=== PATIENT | female | born 1990 | race Caucasian/White ===

== ENCOUNTER 2016-11-11 06:00 | Inpatient (IN) | payer BC ==
[~2016-11-11] VITALS: Ht 165.1 cm; Wt 94.9 kg
[~2016-11-11 06:00] MED LIST: ASPI-557 PO; PREN1TAB77 PO
--- OUTSIDE RECORDS SUMMARY | 2016-11-11 06:11 | XMS REPORT | Continuity of Care Document ---
Author Author [facility] Organization [facility] Address Unknown Phone Unavailable Support Name Relationship Address Phone TRACEE SAMANIEGO MD Caregiver [address] [place] [address] Unavailable ANA DORA Next Of Kin [address] [place] [address] Insurance Providers Guarantor Torin Rebolledo Address [address] [place] [address] Email DENIED/NO PORTAL Payer [facility] Policy Number [id number] Subscriber's Name Dora Rebolledo W Relationship 01 Spouse Group Number [id number] Chief Complaint and Reason for Visit Chief Complaint Lower Extremity Pain Reason for Visit Varicose veins during , antepartum Superficial thrombophlebitis Problems Active Problems Medical Problem Onset Date Status Unknown Acute Past Problems Medical Problem Onset Date Superficial thrombophlebitis Unknown Varicose veins during , antepartum Unknown Medications Current Home Medications Medication Dose Units Route Directions Days Qty Instructions Start Date Aspirin (Aspir 81) 81 Mg Tablet.dr 81 Mg Oral Daily 09/13/16 Past Home Medications Medication Directions Ordered Status Ferrous Sulfate (Iron) 325 Mg Capsule.er, 1 Tab Oral Give With Breakfast Discontinued Social History Social History Problem Response Recorded Date/Time Onset Date Status Hx Substance Use No 09/13/2016 7:51pm Not Applicable Not Applicable Has the pt used tobacco in the last 12 months No 01/20/2015 5:23pm Not Applicable Not Applicable Query Response Start Date Stop Date Smoking Status Never smoker Hospital Discharge Instructions No hospital discharge instructions. Plan of Care Discharge Date 09/13/16 8:21pm Disposition 01 DISCHARGED HOME, SELF-CARE Condition at Discharge Improved Instructions/Education Provided Superficial Thrombophlebitis (ED) Prescriptions See Medication Section Additional Instructions/Education Use warm packs several times daily Continue aspirin as directed May also use Tylenol up to 1000 mg 4 times daily as needed for pain Care Plan and Goals Physician Care Plan Problem: Varicose veins with superficial thrombophlebitis Goal: Follow up with primary care provider Instructions: Take medications and follow care plan as discussed/written Use warm packs several times daily Continue aspirin as directed May also use Tylenol up to 1000 mg 4 times daily as needed for pain Functional Status No functional status results. Allergies, Adverse Reactions, Alerts Allergen Type Severity Reaction Status Last Updated No Known Drug Allergies Allergy Mild Active 09/13/16 Immunizations Query Response on File Recorded Date/Time Hx Influenza Vaccination Y 04-13-14 01/21/15 3:14am Hx Pneumococcal Vaccination No 01/21/15 3:14am Hx Tetanus, Diptheria, Pertussis No 01/21/15 3:14am Hx Influenza Vaccination Y 04-13-14 01/21/15 3:14am Hx Tetanus Diptheria No 01/21/15 3:14am Hx Tetanus, Diptheria, Pertussis No 01/21/15 3:14am Hx Tetanus Toxoid Vaccination No 01/21/15 3:14am Tdap Vaccine Hx NO BROKEN SKIN 09/13/16 7:52pm Vital Signs Acute Vital Signs Vital Response Date/Time Temperature (Fahrenheit) 98.4 deg F (96.8 - 99.1) 09/13/2016 8:18pm Temperature (Calculated Celsius) 36.90227 degrees C (36.0 - 37.3) 09/13/2016 8:18pm Pulse Rate (adult) 77 bpm (60 - 100) 09/13/2016 8:18pm Respiratory Rate 16 breaths/min (10 - 20) 09/13/2016 8:18pm O2 Sat by Pulse Oximetry 98 % (90 - 100) 09/13/2016 8:18pm Blood Pressure 124/66 mm Hg 09/13/2016 8:18pm Height (Feet) 5 feet 09/13/2016 7:07pm Height (Inches) 5.00 inches 09/13/2016 7:07pm Weight (Kilograms) 92.300 kg 09/13/2016 7:07pm Body Mass Index (BMI) 33.0 09/13/2016 7:07pm Results Laboratory Results Test Name Result Units Flags Reference Collection Date/Time Result Date/ Time Comments White Blood Count 7.6 T/MM3 4.5-11.0 09/13/2016 7:32pm 09/13/2016 7: 41pm Red Blood Count 3.61 M/MM3 L 4.00-5.20 09/13/2016 7:32pm 09/13/2016 7: 41pm Hemoglobin 11.4 GM/DL L 12-16 09/13/2016 7:32pm 09/13/2016 7:41pm Hematocrit 34.7 % L 36-46 09/13/2016 7:32pm 09/13/2016 7:41pm Mean Corpuscular Volume 96.1 UM3 80-100 09/13/2016 7:32pm 09/13/2016 7: 41pm Mean Corpuscular Hemoglobin 31.6 UUG 26-34 09/13/2016 7:32pm 2016 7:41pm Mean Corpuscular Hemoglobin Concent 32.9 GM/DL 31-37 09/13/2016 7:32p09/13/2016 7:41pm RDW Standard Deviation 43.4 FL 36.9-50.2 09/13/2016 7:32p09/13/2016 7 :41pm Platelet Count 240 T/MM3 130-400 09/13/2016 7:32p09/13/2016 7:41pm Mean Platelet Volume 9.7 UM3 9.4-12.4 09/13/2016 7:32p09/13/2016 7: 41pm Neutrophils (%) (Auto) 63.4 % 33-66 09/13/2016 7:32p09/13/2016 7: 41pm Lymphocytes (%) (Auto) 29.2 % 23-45 09/13/2016 7:32p09/13/2016 7: 41pm Monocytes (%) (Auto) 6.2 % 0-9.0 09/13/2016 7:32p09/13/2016 7:41pm Eosinophils (%) (Auto) 0.8 % 0-4 09/13/2016 7:32pm 09/13/2016 7:41pm Basophils (%) (Auto) 0.1 % 0-2 09/13/2016 7:32pm 09/13/2016 7:41pm Immature Granulocyte % (Auto) 0.3 % 0.0-0.5 09/13/2016 7:32pm 2016 7:41pm Absolute Neutrophils (auto) 4.8 T/MM3 1.8-7.7 09/13/2016 7:32pm 2016 7:41pm Absolute Lymphocytes (auto) 2.2 T/MM3 1-4.8 09/13/2016 7:32pm 2016 7:41pm Absolute Monocytes (auto) 0.5 T/MM3 0-0.8 09/13/2016 7:32pm 09/13/2016 7:41pm Absolute Eosinophils (auto) 0.1 T/MM3 0-0.5 09/13/2016 7:32pm 2016 7:41pm Absolute Basophils (auto) 0.0 T/MM3 0-0.2 09/13/2016 7:32pm 09/13/2016 7:41pm Absolute Immature Granulocyte (auto 0.02 T/MM3 0.00-0.03 09/13/2016 7: 32pm 09/13/2016 7:41pm Prothromb Time International Ratio 0.96 0.76-1.04 09/13/2016 7:32pm 09/13/2016 7:43pm THERAPUTIC RANGE=2.00-3.00 FOR ANTI-THROMBOSIS THERAPUTIC RANGE=2.50-3.50 FOR IMPLANTED VALVE Activated Partial Thromboplast Time 25.4 SEC 24-36 09/13/2016 7:32pm 7:43pm Procedures No known history of procedures. Encounters Encounter Location Arrival/Admit Date Discharge/Depart Date Attending Provider Departed Emergency Room [facility] 09/13/16 6:51pm 09/13/16 8: 21pm TRACEE SAMANIEGO MD Recent Diagnosis
[2016-11-11] MEDS ORDERED: OXYTOCIN 30 UNIT in D5LR 500 ML SCH (06:15)
[2016-11-11] MEDS ORDERED: ACETAMINOPHEN 500 MG TABLET PO PRN ×2 (06:15→13:45)
[2016-11-11] MEDS ORDERED: MAG-AL + SIM LIQUID 30 ML UDC PO PRN ×2 (06:15→13:45)
[2016-11-11] MEDS ORDERED: LIDOCAINE 1% (10mg/ml) 2ml SDV ID PRN (06:15)
[2016-11-11] MEDS ORDERED: CALCIUM CARBONATE 500mg Chewable TAB PO PRN ×2 (06:15→13:45)
[2016-11-11 06:34] VITALS: BP 123/84; PULSE 85; RESP 16; TEMP 99.4; O2SAT 95
[2016-11-11] MEDS: LR 1,000 ML IV PRN ×2 (06:43→08:43)
[2016-11-11 06:45] LABS: HCT - HEMATOCRIT 36.1 % (36-46); HGB - HEMOGLOBIN 11.6 GM/DL (12-16); MEAN CORPUSCULAR HGB 30.9 UUG (26-34); MEAN CORPUSCULAR HGB CONC(MCHC 32.1 GM/DL (31-37); MEAN PLATELET VOLUME 10.7 UM3 (9.4-12.4); RED BLOOD COUNT 3.76 M/MM3 (4.00-5.20)
[2016-11-11] MEDS ORDERED: D5LR 1,000 ML IV PRN (06:45)
--- NOTE | 2016-11-11 08:41 | ANESOB ---
Epidural/ Date/Time DATE: 11/11/16 TIME: 08:40 Preop Diagnosis Procedure: Labor Epidural Plan: Epidural Height: 5 ' 5.00 " Weight: 94.900 kg BMI: kg/m2 P:1 Medications & Allergies Inpatient Medications Current Medications Medications (Trade) Dose Ordered Sig/Jayla Start Time Stop Time Status Last Admin Dose Admin Dextrose/Lactated Ringer's 1,000 ml @ 0 mls/hr Q0M PRN 11/11/16 06:45 11/11/16 06:43 0 MLS/HR Oxytocin/Dextrose/ Lactated Ringer's (Pitocin/D5lr) 503 ml @ 0 mls/hr Q0M 11/11/16 06:15 11/11/16 06:44 0 MLS/HR Lidocaine HCl 0.2 mg 0.2 mg PRN PRN 11/11/16 06:15 Lactated Ringer's (Lactated Ringers) 1,000 ml @ 0 mls/hr Q0M PRN 11/11/16 06:08 11/11/16 06:43 0 MLS/HR Acetaminophen (Tylenol Extra Strength) 1-2 TABS = 500-1,000 MG Q4H PRN 11/11/16 06:15 Al Hydroxide/Mg Hydroxide (Maalox) 30 ml Q4H PRN 11/11/16 06:15 Calcium Carbonate (TUMS Regular Strength) 1-2 TABS Q2H PRN 11/11/16 06:15 Aspirin (Aspir 81) 81 Mg Tablet.dr, 81 MG PO DAILY, (Reported) Last Taken: on 11/10/16 0800 Vits W-Ca,Fe,FA(<1Mg) ( Vitamins) 1 Each Tablet, 1 TAB PO DAILY, (Reported) Last Taken: on 11/10/16 0800 Coded Allergies: No Known Drug Allergies (Unverified Allergy, Mild, 09/13/16) Medical/Surgical History Anesthesia PMH: Reports: Other (On ASA 81 mg for blood clot), Denies: *Diabetes , Anesthesia Reactions, Malignant Hyperthermia Smoking Status: Never smoker Does patient use chewing tobac: No Second Hand Exposure: No Substance Use Type: does not use Alcohol Intake: none Anesthesia Adverse Reactions: FOUND none Family Hx of Anesthesia Advers: none Hx of Motion Sickness: No Complications During : No Pertinent Findings Laboratory Tests 11/11/16 06:31 Physical Exam Respiratory: Bilat breath sounds equal, Lungs clear Cardiovascular: No murmur, Regular rate, rhythm Airway Assessment Mallampati Score: I TMD: 3 Fingerbreadths Neck Extension: Good Overall Assessment: No Airway Concerns ASA: 2 Discussion Discussed risks/options/alternatives of anesthesia. Patient consents. Nursing pain assessment noted. Present for Discussion: Present: Spouse Attestation Statement Prior to the delivery of any anesthetic medication, I examined the patient, developed the plan, obtained the patient's consent and discussed the risk and benefits of the procedure with the patient/guardian. If the note happens to be signed after anesthesia start time, it is only due to providing efficient care of the patient and documenting at a time when the computer is available. ALBERTO WEI CRNA Nov 11, 2016 08:41
[2016-11-11] MEDS ORDERED: ROPIVACAINE 1% 200 MG, SUFENTANIL 50 MCG in NORMAL SALINE 80 ML EPI PRN (08:45)
[2016-11-11] MEDS ORDERED: DiphenhydrAMINE 50 MG/ML INJECTION IV PRN (08:45)
[2016-11-11] MEDS ORDERED: ONDANSETRON 4mg/2ml INJECTION IV PRN (08:45)
[2016-11-11] MEDS ORDERED: NALOXONE 0.4mg/ml INJECTION IV PRN (08:45)
[2016-11-11] MEDS ORDERED: OXYTOCIN 30 UNIT in D5LR 500 ML IV ONE (13:44)
[2016-11-11] MEDS ORDERED: OXYTOCIN 30 UNIT in D5W 500 ML IV ONE (13:44)
[2016-11-11] MEDS ORDERED: PHENYLEPHRINE RECTAL SUPPOSITORY RECTALLY PRN (13:45)
[2016-11-11] MEDS ORDERED: DiphenhydrAMINE 25 MG CAPSULE PO PRN (13:45)
[2016-11-11] MEDS ORDERED: HYDROCORTISONE 2.5% CREAM 30 GM RECTALLY PRN (13:45)
[2016-11-11] MEDS ORDERED: IBUPROFEN 800 MG TABLET PO PRN (13:45)
[2016-11-11] MEDS ORDERED: MILK OF MAGNESIA 30 ML SUSP PO PRN (13:45)
[2016-11-11] MEDS ORDERED: HYDROCODONE/APAP 5 mg/325 mg TABLET PO PRN (13:45)
--- NOTE | 2016-11-11 15:05 | NUR ---
Care Assumed Report from Cintia Wynn RN and Tamiko Baca RN. Care assumed. Pt in recovery. See further charting in [facility].
--- NOTE | 2016-11-11 16:20 | ANESPO ---
Post-Op Note Date 11/11/16 Time: 16:19 Status Pt Participated in Evaluation: Pt participated in person Vital Signs Date Time Temp Pulse Resp B/P Pulse Ox O2 Delivery O2 Flow Rate FiO2 11/11/16 06:34 99.4 85 16 123/84 95 Room Air Respiratory Function: Airway patent, Regular respirations Cardiovascular Function: Regular pulse Mental Status: Alert/oriented Pain Level Intensity: 0 Hydration: Taking po fluids Complications during Recovery None apparent Follow-Up Instructions Instructions Per Surgeon JOHN PHOENIX CRNA Nov 11, 2016 16:20
[2016-11-11 16:50] VITALS: BP 129/79; PULSE 85; RESP 18; TEMP 98
--- NOTE | 2016-11-11 17:45 | NUR ---
Void Pt up to BR on own. Able to void 600 ml. States she feels that she was able to completely empty her bladder. Minimal bleeding. Pt denies pain at this time.
[2016-11-11 17:50] VITALS: BP 122/68; PULSE 85; RESP 18; O2SAT 97
--- NOTE | 2016-11-11 18:11 | LDNF ---
DATE OF DELIVERY: 11/11/2016 DIAGNOSES 1. 26-year-old white female, G2, P1 at 39 weeks 1 day gestational age. 2. Pitocin induction of labor for logistics. 3. Epidural anesthesia. 4. AROM. 5. Spontaneous vaginal delivery. 6. Nuchal cord x 1. 7. Male infant, Apgars 3637 g (8 pounds) (Isrrael Montano). 8. Second-degree perineal laceration - repaired. This is a patient of mine who was brought in for logistics induction. She has a history of a previous PPROM at 36.4 weeks gestational age. She is 39.1 weeks today. She was 2.5 cm dilated when we started. Pitocin reached a maximum of 18 milliunits/minute. Pitocin was turned on and off throughout the day because of heart tone issues. Artificial rupture of membranes occurred after the epidural in the morning and she was 4 cm dilated. Eventually we made it to complete dilation in OA presentation. Infant was delivered from the OA presentation on the third contraction and the ninth push. was bulb suctioned after delivery of the head and then again after delivery of the body. There was a nuchal cord x 1 that was delivered through. Infant was bulb suctioned after delivery of head and then again after delivery of the body. After draining for 1 minute 45 seconds the cord was doubly clamped and cut and the infant was placed on the mother's abdomen. The placenta delivered spontaneously and was intact. EBL was 250. There was a second-degree perineal laceration. I reinforced the rectal sphincter capsule with 2-0 Vicryl in a [id number] fashion and then using 2-0 Vicryl and 3-0 chromic repaired the second-degree laceration. Maternal blood type is A+, rubella is immune. MTDD
--- NOTE | 2016-11-11 21:00 | NUR ---
Status Pt rating pain 4-5/10 in lower back. Ibuprofen given. Bleeding small to scant. Tolerating po food and fluids. IV dc'd per pt request. Linens brought in for shower. Pt is unsure if she will shower tonight or in the morning. Denies further needs at this time. Encouraged to call PRN.
[2016-11-12 00:05] VITALS: BP 120/76; PULSE 62; RESP 16; TEMP 97.8; O2SAT 98
--- NOTE | 2016-11-12 01:51 | NUR ---
Chart Check 24 hour chart check completed
[2016-11-12 06:07] LABS: HCT - HEMATOCRIT 34.3 % (36-46); HGB - HEMOGLOBIN 11.1 GM/DL (12-16); MEAN CORPUSCULAR HGB CONC(MCHC 32.4 GM/DL (31-37); MEAN CORPUSCULAR VOLUME 95.8 UM3 (80-100); MEAN PLATELET VOLUME 10.3 UM3 (9.4-12.4); RED BLOOD COUNT 3.58 M/MM3 (4.00-5.20); WBC - WHITE BLOOD COUNT 8.2 T/MM3 (4.5-11.0)
[2016-11-12 07:50] VITALS: BP 127/78; PULSE 59; RESP 16; TEMP 97.8; O2SAT 97
--- NOTE | 2016-11-12 08:21 | PNPDOC ---
Progress Note PPD1 Weeks: 39 Days: 1 Rubella: Immune GBS: Negative Blood Type:A pos Subjective 11/12/16 Lochia: Moderate Pain: Controlled Pain controlled with Ibuprofen Voiding: Voiding Nausea and Vomiting: No Nausea/Vomiting Objective Vital Signs Date Time Temp Pulse Resp B/P Pulse Ox O2 Delivery O2 Flow Rate FiO2 11/12/16 00:05 97.8 62 16 120/76 98 Room Air Urine Output: Good General: Alert and Oriented Respiratory: Non-labored Abdomen: Fundus Firm Extremities: Non-tender Edema: None Laboratory Item Value Date Time White Blood Count 8.2 T/MM3 11/12/16556 Red Blood Count 3.58 M/MM3 L 11/12/16556 Hemoglobin 11.1 GM/DL L 11/12/16556 Hematocrit 34.3 % L 11/12/16556 Platelet Count 189 T/MM3 11/12/16556 Assessment SP, JOOVN Plan Routine Care, Discharge Home, Continue PNV Expected date of discharge: Nov 12, 2016 Plans to go home today after bilirubin back on baby. CITLALI BOO APRN Nov 12, 2016 08:18
[2016-11-12] MEDS ORDERED: IBUP-1547 PO (08:31)
[2016-11-12] MEDS ORDERED: PRENATAL VITAMIN TABLET PO SCH (09:00)
[2016-11-12] MEDS ORDERED: ASPIRIN *EC* 81mg TABLET PO SCH (09:00)
[2016-11-12] MEDS ORDERED: DOCUSATE CALCIUM 240 MG CAPSULE PO SCH (09:00)
--- NOTE | 2016-11-12 15:29 | NUR ---
Shift Summary: VSS, pain controlled, pt up ad matthew. Bleeding is minimal. Pt is performing self cares. is going well. Pt and family is awaiting DC to home.
[2016-11-12 15:30] VITALS: BP 140/76; PULSE 70; RESP 16; TEMP 96.7; O2SAT 96
== END 2016-11-12 16:36 | disposition home or self-care (01) | DRG 775 ==
LOC: MC 06:01
PROVIDERS: ADMIT Obstetrics & Gynecology; ATTEND Obstetrics & Gynecology
PROC: 10E0XZZ Delivery of Products of Conception, External Approach (ICD-10-PCS; principal; 2016-11-11)
PROC: 0KQM0ZZ Repair Perineum Muscle, Open Approach (ICD-10-PCS; 2016-11-11)
PROC: 3E033VJ Introduction of Other Hormone into Peripheral Vein, Percutaneous Approach (ICD-10-PCS; 2016-11-11)
PROC: 10907ZC Drainage of Amniotic Fluid, Therapeutic from Products of Conception, Via Natural or Artificial Opening (ICD-10-PCS; 2016-11-11)
DX: O26.893 Other specified pregnancy related conditions, third trimester (principal); O69.81X0 Labor and delivery complicated by cord around neck, without compression, not applicable or unspecified; O70.1 Second degree perineal laceration during delivery; O09.213 Supervision of pregnancy with history of pre-term labor, third trimester; Z3A.39 39 weeks gestation of pregnancy; Z37.0 Single live birth
CPT/HCPCS: 36415; 85027

== ENCOUNTER 2018-01-11 06:04 | Inpatient (IN) ==
--- OUTSIDE RECORDS SUMMARY | 2018-01-11 06:11 | External Medical Summary | Continuity of Care Document ---
:1990 Author Organization [facility] Address [address] [place], [place] [address] Phone Support Name Relationship Address Phone Padilla Rebolledo spouse [address] [place] [address] Allergies, Adverse Reactions, Alerts Substance Reaction Severity Status No Known Drug Allergies Unknown Active Medications Medication Instructions Dosage Effective Dates Status Comments (start - stop) 27 mg-0.8 take 1 tablet by Not Available - Active mg tablet oral route every day Problems Condition Effective Dates (start - stop) Clinical Status Threatened - Dysuria - Suprvsn of preg w history of pre-term - labor, second tri Placenta previa specified as w/o - hemor, second trimester 20 weeks gestation of - Suprvsn of preg w history of pre-term - labor, second tri Placenta previa specified as w/o - hemor, second trimester 18 weeks gestation of - Threatened - Threatened Threatened Dysuria Placenta Previa without Hemorrhage Encntr screen for infections w sexl - mode of transmiss Encounter for screening for oth - infec/parastc diseases Routine Care, Multigravida Encounter for screening of - mother 10 weeks gestation of - Encounter for suprvsn of normal - , second trimester 14 weeks gestation of - Encounter for suprvsn of normal - , second trimester 20 weeks gestation of - Active Procedures Procedure Date Ultrasound exam of preg uterus, complete Results Test Name Date and Time Measure Units Reference Range Abnormal Flag Comments Unknown Advance Directives Directive Yes / No Effective Date File Name Unknown Encounters Encounter Practice Location Reason(s) Diagnoses Date Provider Care Team Description For Visit Members Jose Medina Encounter for Dec-0 [facility] Referring In Womens suprvsn of normal 8-201 [address]. 700 Provider: Geno BOYD, , second 6 Medical Ravinder [address] [id number] weeks Center [facility] [place], 1522, gestation of Dr Rey Conchita Kwan, 120, Medical [facility] [id number], [place], [place] 120, [place] [id number] Adam, tel: , [place]. [place], tel: [phone]. [id number] tel:[phone] Jose Medina Suprvsn of preg w Dec-0 [facility]ima Referring In Womens Ultrasound history of 8-201 [address]. 700 Provider: Geno BOYD, pre-term labor, 6 Medical Ravinder PO Box second Center [facility] [place], 1522, [place], [address] [place], previa specified 120, Medical KELSIE, as w/o [facility] [id number], second [place], [place] 120, [place] [email or web address] weeks [id number] Adam, tel: gestation of , [place]. [place] tel:[phone]. [id number] tel:[phone] Jose Medina Suprvsn of preg w Nov-2 Hima Referring In Womens history of 3-201 [address]. 700 Provider: Geno BOYD, pre-term labor, 6 Medical Ravinder PO Box second Center [facility]ima R, 1522, [place], [address] [place], previa specified 120, Medical KELSIE, as w/o [place], [place] [id number], second KELSIE, [place] 120, [place] [email or web address] weeks [id number] Adam, tel: gestation of , [place]. [place] tel: [phone]. [id number] tel:[phone] Jose Medina Encounter for Oct-2 Hima Referring In Womens suprvsn of normal 5-201 [address]. 700 Provider: Geno BOYD, , second 6 Medical Ravinder [address] [email or web address] weeks Center Hima R, 1522, gestation of Dr, [place] [address] [place], 120, Medical [facility] [id number], [place], [facility] 120, [place] [id number] Adam, tel: , [place]. [place], tel:[phone]. [id number] tel:[phone] Jose Medina Placenta Previa Sep-2 Hima Referring In Womens without 7-201 [address]. 700 Provider: Silverio Cruzntafia [address] [place] [address] PO Box screen for Center [facility] R, 1522, infections w sexl , [place] [address] [place], mode of 120, Medical [place], [facility]ounte [facility] [id number], [place] for screening [place], [facility] 120, [place] for oth [id number] Adam, tel: infec/parastc , [place]. [place], diseasesRoutine tel:[phone]. Care, [id number] tel: MultigravidaEncou [phone] nter for screening of [id number] weeks gestation of Associates Adam Threatened Sep-2 Hima Referring In Womens Ultrasound 2-201 [place]. 700 Provider: Geno BOYD 6 [facility] PO Box Center [facility] [place], 1522, , [address], 120, [facility] [id number], [place], [facility] 120, [place] [id number] Adam, tel: , [place]. [place], tel: [phone]. [id number] tel:[phone] Jose Medina Threatened Sep-2 Flowers Referring In Womens abortionThreatene 2-201 Lucinda. Provider: steve Cruz [address] [place] [address] PO Box abortionThreatene Medical Hima R, 1522, [address] [place] [address] [place] abortionDarrionsu[place], [facility], [place] 120, [place] [id number], [facility], [place] Adam IGLESIAS, tel:[phone] [place], , [place]. [id number]. tel: tel: [phone] Jose Medina Joselito-2 Hima Referring In Womens 5-201 [place]. 700 Provider: Health PA, 5 [facility] Earl Brennan, , [address] 700 [place], 120, Medical [facility] [id number], [place], [facility] 120, [id number] Adam, tel: , . [place], tel: [phone]. [id number] tel:[phone] Associates Adam Dec-2 Hima Referring In Womens 3-201 [place]. 700 Provider: Health PA, 4 [facility] Earl Brennan, , [place] 700 [place], 120, Medical [facility] [id number], [place], [facility] 120, [id number] [place], tel: , . [place], tel: [phone]. [id number] tel:[phone] Associates [facility] Jun-1 Luan In Womens 6-201 Nelia. Health PA, [address] [place] [address] [address], [place] [address] [place], [facility], [facility], [id number], [place], KELSIE, tel: [phone] , [place]. tel: [phone] Family History Family Member Diagnosis Age At Onset No family history of Lung Disease Paternal Grandmother Stroke Maternal Grandfather Thyroid Disorder No family history of Hypertension No family history of Kidney Disease Mother Diabetes mellitus No family history of Cardiovascular Disease No family history of Venous Thrombosis Mother Thyroid Disorder No family history of Breast Cancer No family history of Ovarian Cancer Maternal Grandmother Thyroid Disorder No family history of Colon Cancer Maternal Grandfather Diabetes mellitus No family history of Osteoporosis Father Diabetes mellitus No family history of Uterine Cancer No family history of Epilepsy Immunizations Vaccine Date Status Comments Influenza, injectable, completed Source: New Immunization Record quadrivalent, preservative free, 3 yrs or older Tdap completed Source: New Immunization Record Influenza, injectable, completed Source: Source Unspecified quadrivalent, preservative free, 3 yrs or older Payers Payer name Insurance type Covered alliance party ID Authorization(s) [facility] KELSIE [id number] [facility] KELSIE [id number] [facility] [id number] Social History Type Description Quantity Date Captured Unknown Vital Signs Date / Height Weight BMI Pulse Blood Temperature Respiratory Body Head BMI Time: Rate Pressure Rate Surface Circumference percentile Area Unknown Chief Complaint And Reason For Visit Unknown Chief Complaint And Reason For Visit Reason For Referral Reason For Referral Unknown Plan Of Care Date Type Action Status Appointment KeshaGin BOOKED Future Order: Radiology Order Complete OB Ultrasound > 14 Ordered Weeks (11128) Future Order: Lab Order Pap Smear With HPV Reflex If ASCUS Ordered ([id number]) Future Order: Lab Order Pap Smear With HPV Reflex If ASCUS Ordered ([id number]) Date Type Problem Goal Intervention Status Start Date Unknown. History Of Present Illness Encounter Date Complaint History Of Present Illness This patient has no known history of present illness Functional Status Encounter Date Functional Assessment Cognitive Assessment Unknown Medications Administered Medication Instructions Dosage Effective Dates (start - stop) Status Comments Drug Treatment Unknown Instructions Date Instruction Additional Information HIV and other routine tests risk factors identified by history anticipated course of care nutrition and weight gain counseling, special diet toxoplasmosis precautions (cats / raw meat) sexual activity exercise indications for ultrasound influenza vaccine environmental / work hazards travel use of any medications (including supplements, vitamins, herbs, OTC drugs) seat belt use childbirth classes / hospital facilities hospital registration genetic testing new ob handbook HIV and other routine tests risk factors identified by history anticipated course of care nutrition and weight gain counseling, special diet toxoplasmosis precautions (cats / raw meat) sexual activity exercise new ob handbook [facility] docs indications for ultrasound influenza vaccine environmental / work hazards travel use of any medications (including supplements, vitamins, herbs, OTC drugs) domestic violence seat belt use childbirth classes / hospital facilities hospital registration genetic testing
--- OUTSIDE RECORDS SUMMARY | 2018-01-11 06:11 | External Medical Summary | Continuity of Care Document ---
:1990 Author Organization [facility] Address [address] [place], [place] [id number] Phone Care Team Providers Name Role Phone Rinku Ramos MD Unavailable Unavailable Allergies, Adverse Reactions, Alerts Substance Reaction Severity Status No Known Drug Allergies Unknown Active Medications Medication Instructions Dosage Effective Dates Status Comments (start - stop) 27 mg-0.8 take 1 tablet by Not Available - Active mg tablet oral route every day Problems Condition Effective Dates (start - stop) Clinical Status Follow-Up, Routine - Dysuria - Suprvsn of preg w history of pre-term - labor, first trimester Supervision of other high risk - pregnancies, first trimester Encntr screen for infections w sexl - mode of transmiss Encounter for screening for oth - infec/parastc diseases Encounter for screening of - mother 10 weeks gestation of - 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 Placenta Previa without Hemorrhage Encounter for screening for oth - infec/parastc diseases Dysuria Active Active Procedures Procedure Date Initial OB Visit No Charge - ORDER ENTRY TECHNICIAN Urine Culture OB Panel With An HIV Venpnctr fngr/heel/ear stick routne Infct antign, chlamydia trac, ampl Neisseria Gonorrhoeae, Amplification Cult, bactr, ident isolate, urine Results Test Name Date and Time Measure Units Reference Range Abnormal Flag Comments Panel Description: OBSTETRIC PANEL WHITE BLOOD CELL 9.1 Thousand/uL 3.8-10.8 N COUNT 15:17:00 RED BLOOD CELL 4.04 Million/uL 3.80-5.10 N COUNT 15:17:00 HEMOGLOBIN 12.8 g/dL 11.7-15.5 N 15:17:00 HEMATOCRIT 38.1 % 35.0-45.0 N 15:17:00 MCV 94.3 fL 80.0-100.0 N 15:17:00 MCH 31.7 pg 27.0-33.0 N 15:17:00 MCHC 33.6 g/dL 32.0-36.0 N 15:17:00 RDW 12.2 % 11.0-15.0 N 15:17:00 PLATELET COUNT 278 Thousand/uL 140-400 N 15:17:00 MPV 9.9 fL 7.5-12.5 N 15:17:00 ABSOLUTE 6497 cells/uL 7241-9489 N NEUTROPHILS 15:17:00 ABSOLUTE 2102 cells/uL 850-3900 N LYMPHOCYTES 15:17:00 ABSOLUTE 446 cells/uL 200-950 N MONOCYTES 15:17:00 ABSOLUTE 36 cells/uL 15-500 N EOSINOPHILS 15:17:00 ABSOLUTE 18 cells/uL 0-200 N BASOPHILS 15:17:00 NEUTROPHILS 71.4 % N 15:17:00 LYMPHOCYTES 23.1 % N 15:17:00 MONOCYTES 4.9 % N 15:17:00 EOSINOPHILS 0.4 % N 15:17:00 BASOPHILS 0.2 % N 15:17:00 ANTIBODY SCREEN, NO ANTIBODIES N RBC W/REFL ID, 15:17:00 DETECTED Reference range TITER AND AG No antibodies detected This assay is a screening test for the detection of red blood cell antibodies. The test is not to be used for pretransfusion screening or for the medical management of an alloimmunized . ABO GROUP A 15:17:00 RH TYPE RH(D) 15:17:00 POSITIVE RPR (DX) W/REFL NON-REACTIVE NON-REACTIV N TITER AND 15:17:00 E CONFIRMATORY TESTING HEPATITIS B NON-REACTIVE NON-REACTIV N SURFACE ANTIGEN 15:17:00 E RUBELLA ANTIBODY 2.16 index N Index (IGG) 15:17:00 Interpretation ----- <0.90 Not consistent with Immunity 0.90-0.99 Equivocal > or=1.00 Consistent with Immunity The presence of rubella IgG antibody suggests immunization or past or current infection withrubella virus.Test performed at [facility] [id number] [facility] [place] [address]Tepeknw r: VALENTIN ANNA DO,MPH Panel Description: HIV 1/2 ANTIGEN/ANTIBODY,FOURTH GENERATION W/RFL HIV NON-REACTIVE NON-REACTIVE N HIV-1 antigen and HIV-1/HIV- 2 antibodies were AG/AB, 15:17:00 notdetected. There is no laboratory evidence of 4TH GEN HIVinfection. PLEASE NOTE: This information has been disclosed toyou from records whose confidentiality may beprotected by state law. If your state requires suchprotection, then the state law prohibits you frommaking any further disclosure of the informationwithout the specific written consent of the personto whom it pertains, or as otherwise permitted by law.A general authorization for the release of medical orother information is NOT sufficient for this purpose. For additional information please refer tohttp://education.CoinBatch/faq/PTZ308(This link is being provided for informational/educational purposes only.) The performance of this assay has not been clinicallyvalidated in patients less than 2 years old. REPORT COMMENT:FASTING:NOTest performed at [facility] [id number] [facility] [place] [address]Oiwsrynp: VALENTIN ANNA DO,MPH Panel Description: Bacteria identified in Urine by Culture CULTURE, URINE, 15:20:00 SEE NOTE CULTURE, URINE, ROUTINE ROUTINE MICRO NUMBER: [id number] TEST STATUS: FINAL SPECIMEN SOURCE: URINE SPECIMEN QUALITY: ADEQUATE RESULT: Single organism less than 10,000 CFU/mL isolated. These organisms, commonly found on external and internal genitalia, are considered colonizers. No further testing performed.REPORT COMMENT:RFASTING:UNKNOWNTest performed at [facility] [address] [address]Hoipqxlq: VALENTIN ANNA DO,MPH Panel Description: CHLAMYDIA/N. GONORRHOEAE RNA, TMA CHLAMYDIA NOT DETECTED NOT DETECTED N TRACHOMATIS RNA, 15:18:00 TMA NEISSERIA NOT DETECTED NOT DETECTED N GONORRHOEAE RNA, 15:18:00 TMA [id number] SEE NOTE This test was 15:18:00 performed using the APTCrossCore COMBO2 Assay([employer] The analytical performance characteristics of this assay, when used to test SurePath specimens havebeen determined by [facility]. REPORT COMMENT:FASTING:UNKNO WNTest performed at [facility] [address] [address]Vutvizdw: VALENTIN ANNA DO,MPH Panel Description: Pap Smear With HPV Reflex If ASCUS Document Pap smear 14:30:00 See scanned report Advance Directives Directive Yes / No Effective Date File Name Unknown Encounters Encounter Practice Location Reason(s) Diagnoses Date Provider Care Team Description For Visit Members [facility] Pagan of preg w Hima Referring In Womens history of pre-term 8-201 [place]. 700 Provider: Health PA, labor, rust 7 [facility] trimesterSupervisio Center Hima R, 1522, n of other high , [place] 700 [place], risk pregnancies, 120, Medical [facility] [id number], trimesterEncntr [place], [facility] 120, [place] screen for [id number] Adam, tel:[phone] infections w sexl , [place]. [place], [id number] mode of tel: [phone]. transmissEncounter [id number] tel:[phone] for screening for [id number] oth infec/parastc diseasesEncsparrow [facility] for screening of updyut12 weeks gestation of Associates [facility] May-3 [place]ima Referring In Womens Follow-Up, Routine 1-201 [place]. 700 Provider: Geno BOYD, 7 [facility] [address] [place] Hima [place] 1522, , [place] [address]wan, 120, Medical Adam IGLESIAS, [place] [id number], [place], [place] 120, [place] [id number] Adam, tel:+ , [place]. [place], tel: [phone]. [id number] tel:[phone] Jose [place] Mar-3 Hima Referring In Womens 0-201 [place]. 700 Provider: Geno BOYD, 7 [facility] Hima [place]ier 1522, Dr [place] [address]wan, 120, Medical Adam IGLESIAS, [place] [id number], [place], [place] 120, [place] [id number] Adam, tel:+ , [place]. [place] tel: [phone]. [id number] tel:[phone] Associates [facility] Embolism and Mar-0 Hima Referring In Womens thrombosis of 2-201 [place]. 700 Provider: Geno BOYD, superfic veins of 7 [facility] Box right low extrm [place] [address] [place], 120, Medical Adam IGLESIAS, [place] [id number], [place], [place] 120, [place] [id number] Adam, tel:+ , [place]. [place], tel: [phone]. [id number] tel:[phone] Jose [place] Oct-2 Hima Referring In Womens 5-201 [place]. 700 Provider: Geno BOYD, 6 [facility] [address] [place] [address] [place], 120, Medical Adam IGLESIAS, [place] [id number], [place], [place] 120, [place] [id number] Adam, tel:+ , [place]. [place] tel: [phone]. [id number] tel:[phone] Jose [place] Placenta Previa Sep-2 Hima Referring In Womens without 7-201 [place]. 700 Provider: Geno BOYD HemorrhageEncounter 6 Medical [place] PO Box for screening for Center Hima R, 1522, [facility] infec/parastc , [place] [address] [place], [facility] 120, Medical [facility] [id number], [place], [facility] 120, [place] [id number] Adam, tel: , [place], tel: [phone]. [id number] tel:[phone] [facility] DysuriaDysuria Sep-2 [place] Referring In Womens 2-201 [place]. Provider: Health DEB, [address] [place] [address] Hima R, 1522, [place] [address], [facility], 120, [place] [id number], [place], [facility] 120, Adam IGLESIAS, tel:[phone] [place], , [place]. [id number]. tel: tel: [phone] Associates [facility] Joselito-2 Hima Referring In Womens 5-201 [place]. 700 Provider: Health DEB, 5 [facility] Hima [place]ier, 1522, , [address], 120, Medical [facility] [id number], [place], [facility] 120, [place] [id number] Adam, tel: , . [place], tel:[phone]. [id number] tel:[phone] Associates [facility] Dec-2 Hima Referring In Womens 3-201 [place]. 700 Provider: Health DEB, 4 [facility] Hima R, 1522, , [place] [address] [place], 120, Medical [facility] [id number], [place], [facility] 120, [place] [id number] Adam, tel: , [place], tel: [phone]. [id number] tel:[phone] Associates [facility] Dec-1 Luan In Womens 6-201 Nelia. Health PA, [address] [place] [address] [address] [place], [facility] [place], 120, [id number], Adam, KELSIE, tel:[phone] , [place]. tel: [phone] Family History Family Member Diagnosis Age At [...] of Epilepsy Immunizations Vaccine Date Status Comments Tdap completed Source: New Immunization Record Influenza, injectable, completed Source: New Immunization Record quadrivalent, preservative free, 3 yrs or older Tdap completed Source: New Immunization Record Influenza, injectable, completed Source: Source Unspecified quadrivalent, preservative free, 3 yrs or older Payers Payer name Insurance type Covered alliance party ID Authorization(s) [facility] [id number] [facility] [id number] [facility] [id number] [facility] [id number] Social History Type Description Quantity Date Captured Alcohol Use Details No Caffeine Use Details No Tobacco Use Status Never smoked tobacco Smoking Status Never smoker Non-Smoking Tobacco Use : No Details Available : No Details Available Details Vital Signs Date / Height Weight BMI Pulse Blood Temperature Respiratory Body Head BMI Time: Rate Pressure Rate Surface Circumference percentile Area 206.30 34.3 137/78 -2017 lbs 3 mm[Hg] 2:41 kg/m PM eter (2) Chief Complaint And Reason For Visit Unknown Chief Complaint And Reason For Visit Reason For Referral Reason For Referral Unknown Plan Of Care Date Type Action Status Appointment Gin Rebolledo BOOKED Future Order: Lab Order Pap Smear With [...] influenza vaccine environmental / work hazards travel genetic testing use of any medications (including supplements, vitamins, herbs, OTC drugs) domestic violence seat belt use childbirth classes / hospital facilities hospital registration HIV and other routine tests risk factors [...]
--- OUTSIDE RECORDS SUMMARY | 2018-01-11 06:11 | External Medical Summary | Continuity of Care Document ---
:1990 Author Organization [facility] Address [address] [place], [place] [address] Phone Care Team Providers Name Role Phone [...] history of pre-term - labor, second tri 14 weeks gestation of - 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 Suprvsn of preg w history of pre-term - labor, first trimester Supervision of other high risk - pregnancies, first trimester Encntr screen for infections w sexl - mode of transmiss Encounter for screening for oth - infec/parastc diseases Encounter for screening of - mother 10 weeks gestation of - Placenta Previa without Hemorrhage Encounter for screening for oth - infec/parastc diseases Dysuria Active Active Procedures Procedure Date OB Visit No Charge Results Test Name Date and Time Measure Units Reference Range Abnormal Flag Comments Unknown Advance Directives Directive Yes / No Effective Date File Name Unknown Encounters Encounter Practice Location Reason(s) Diagnoses Date Provider Care Team Description For Visit Members [facility] Suprvsn of preg w Dec-2 Hima Referring In Womens history of pre-term 6-201 [place]. 700 Provider: Health DEB, labor, second tri14 7 [facility] weeks gestation of [place] Hima Napier, 1522, [place], 120, Medical [facility] [id number], [place], [place] 120, [place] [id number] Adam, tel: , [place]. [place], tel: [phone]. [id number] tel:[phone] Jose [place] Suprvsn of preg w Nov-2 Hima Referring In Womens history of pre-term 8-201 [place]. 700 Provider: Geno BOYD, labor, first 7 [facility] trimesterSupervisio [place] Hima [place], 1522, n of other high [place], risk pregnancies, 120, Medical [place], [facility] [id number], trimesterEncntr [place], [place] 120, [place] screen for [id number] [place], tel: infections w sexl , [place]. [place], mode of tel: [phone]. transmissEncounter [id number] tel: for screening for [id number] [facility] infec/parastc diseasesEncounter for screening of yrzjua22 weeks gestation of Jose Medina November-3 Hima Referring In Womens Follow-Up, Routine -201 [place]. 700 Provider: Geno BOYD, 7 [facility] Hima [place]ier 1522, [place], 120, Medical [facility] [id number], [place], [place], [place] [id number] Adam, tel: , . [place] tel: [phone]. [id number] tel:[phone] Jose [place] Sep-3 Hima Referring In Womens 0-201 [place]. 700 Provider: Geno BOYD, 7 [facility] Hima [place], 1522, [place], 120, Medical [facility] [id number], [place], [place], [place] [id number] Adam, tel: , [place]. [place] tel: [phone]. [id number] tel:[phone] [facility] Embolism and Mar-0 Hima Referring In Womens thrombosis of 2-201 [place]. 700 Provider: Geno BOYD, superfic veins of 7 Medical [place] PO Box right low extrm [place] Hima Napier, 1522, , [place] 700 [place], 120, Medical [facility] [id number], [place], [place] 120, [place] [id number] Adam, tel: , [place]. [place], tel: [phone]. [id number] tel:[phone] Associates [facility] Oct-2 Hima Referring In Womens 5-201 [place]. 700 Provider: Geno BOYD, 6 [facility] Hima [place], 1522, , [place] [address] [place], 120, Medical Adam IGLESIAS, [place] [id number], [place], [place] 120, [place] [id number] Adam, tel: , [place]. [place], tel: [phone]. [id number] tel:[phone] [facility] Placenta Previa Sep-2 Hima Referring In Womens without 7-201 [place]. 700 Provider: Geno BOYD, HemorrhageEncounter 6 [facility] Box for screening for Center Hima R, 1522, [facility] infec/parastc , [place] [address] [place], [facility] 120, Medical Adam IGLESIAS, [place] [id number], [place], [place] 120, [place] [id number] Adam, tel: , [place]. [place] tel: [phone]. [id number] tel:[phone] [facility] DysuriaDysuria Sep-2 [place] Referring In Womens 2-201 [place]. Provider: Geno BOYD, [address] [place] [address] Hima Napier, 1522, [place] [address], [facility], 120, [place] [id number], [place], [place] 120, [place] Adam IGLESIAS, tel:[phone] [place] , [place]. [id number]. tel: tel:[phone] Associates Adam Joselito-2 Hima Referring In Womens 5-201 [place]. 700 Provider: Health PA, 5 [facility] Marshall Brennan2, , [place] 700 [place], 120, Medical [facility] [id number], [place], [place] 120, [place] [id number] Adam, tel:[phone] , [place]. [place], tel: [phone]. [id number] tel:[phone] Jose Medina Jun-2 Hima Referring In Womens 3-201 [place]. 700 Provider: Health PA, 4 [facility] Earl Brennan, , [place] 700 [place], 120, Medical [facility] [id number], [place], [place] 120, [place] [id number] Adam, tel:+2 , [place]. [place], tel: [phone]. [id number] tel:[phone] Jose Medina Dec-1 Luan In Womens 6-201 [place]. Health PA, [address] [place] [address] 1522, [place] [address] [place], [facility], 120, [id number], [place], [place], tel:+ [phone] , [place]. tel:[phone] Family History Family Member Diagnosis Age At [...] older Payers Payer name Insurance type Covered libertarian ID Authorization(s) JOSH SARAVIA [id number] [employer] [place] [id number] [place] [place] [id number] [place] [id number] Social History Type Description Quantity Date Captured Alcohol Use Details No Caffeine Use Details Unknown Tobacco Use Status Unknown Smoking Status Never smoker Vital Signs Date / Height Weight BMI [...]
--- OUTSIDE RECORDS SUMMARY | 2018-01-11 06:11 | External Medical Summary | Continuity of Care Document ---
:1990 Author Organization [facility] Address [address] [place], [place] [id number] Phone Care Team Providers Name Role Phone Rinku Ramos MD Unavailable Unavailable Allergies, Adverse Reactions, Alerts Substance Reaction Severity Status No Known Drug Allergies Unknown Active Medications Medication Instructions Dosage Effective Dates Status Comments (start - stop) aspirin 81 mg chew 1 tablet by 81 MG - Active chewable tablet oral route every day 27 mg-0.8 take 1 tablet by Not Available - Active mg tablet oral route every day Problems Condition Effective Dates (start - stop) Clinical Status Follow-Up, Routine - Dysuria - Supervision of other high risk - pregnancies, third trimester 30 weeks gestation of - Suprvsn of preg w history of pre-term - labor, second tri 18 weeks gestation of - Embolism and thrombosis [...] - mother 10 weeks gestation of - Suprvsn of preg w history of pre-term - labor, second tri 20 weeks gestation of - Suprvsn of preg w history of pre-term - labor, second tri 14 weeks gestation of - Suprvsn of preg w history of pre-term - labor, second tri Supervision of other high risk - pregnancies, second trimester Encounter For Screening For - Malformations 20 weeks gestation of - Suprvsn of preg w history of pre-term - labor, third trimester Supervision of other high risk - pregnancies, third trimester 32 weeks gestation of - Supervision of other high risk - pregnancies, second trimester 24 weeks gestation of - Supervision of other high risk - pregnancies, third trimester 28 weeks gestation of - Placenta Previa without [...] Care Team Description For Visit Members Jose Betancourtn of preg w Hima Referring In Womens history of Ravinder. Conchita Provider: Health [place], pre-term labor, 8 Medical Ravinder PO Box third [place] Hima R, 1522, trimesterSupervis , [place] 700 [place] ion of other high 120, Medical [place], risk pregnancies, [facility] [id number], third [id number] KELSIE [facility] 120, [place] weeks gestation [id number] Adam, tel: of , [place]. [place], [address] tel: [phone]. [id number] tel:[phone] Associates [facility] Supervision of Oct- Hima Referring In Womens other high risk 9- Ravinder. 700 Provider: Health [place], pregnancies, 8 Medical Ravinder PO Box third [id number] Center Hima R, 1522, weeks gestation , [place] 700 [place], of 120, Medical KELSIE, Adam [place] [id number], [place], [place] 120, [place] [id number] Adam, tel: , [place]. [place], tel: [phone]. [id number] tel:[phone] Jose Medina Supervision of Apr-0 Hima Referring In Womens other high risk 5-201 Ravinder. 700 Provider: Health PA, pregnancies, 8 Medical Ravinder PO Box third [id number] Center Hima R, 1522, weeks gestation [place], of 120, Medical Adam [facility] [id number], [place], [place] 120, [place] [id number] Adam, tel: , [place]. [place], tel: [phone]. [id number] tel:[phone] Jose Medina Supervision of Mar-0 Hima Referring In Womens other high risk 8-201 [place]. 700 Provider: Health PA, pregnancies, 8 Medical Ravinder PO Box second Center Hima R, 1522, [email or web address] weeks [place], gestation of 120, Medical [place], [facility] [id number], [place], [facility] 120, [place] [id number] Adam, tel: , [place]. [place], tel: [phone]. [id number] tel:[phone] Jose Medina Suprvsn of preg w Feb-0 Hima Referring In Womens history of 8-201 Ravinder. 700 Provider: Health PA, pre-term labor, 8 Medical Ravinder PO Box second tri20 Center Hima R, 1522, weeks gestation [place], of 120, Medical Adam [facility] [id number], [place], [place] 120, [place] [id number] Adam, tel: , [place]. [place], tel: [phone]. [id number] tel:[phone] Jose Medina Suprvsn of preg w Feb-0 Hima Referring In Womens Ultrasound history of 8-201 Ravinder. 700 Provider: Health PA, pre-term labor, 8 Medical Ravinder PO Box second Center Hima R, 1522, triSupervision of [place], other high risk 120, Medical [place], pregnancies, [facility] [id number], second [place], [place] 120, [place] trimesterEncounte [id number] Adam, tel: r For , [place]. [place], Screening For tel:[phone]. [id number] tel: weeks gestation [phone] of Associates Adam Suprvsn of preg w Chuckie-2 Hima Referring In Womens history of 3-201 Ravinder. 700 Provider: Health DEB, pre-term labor, 8 Medical Ravinder PO Box second tri18 Center Hima R, 1522, weeks gestation , Rey Conchita [place], of 120, Medical Adam [facility] [id number], [place], [facility] 120, [place] [id number] Adam, tel: , [place]. [place], tel:[phone]. [id number] tel:[phone] Associates [facility] Suprvsn of preg w Dec-2 Hima Referring In Womens history of 6-201 Ravinder. 700 Provider: Geno BOYD, pre-term labor, 7 Medical Ravinder PO Box second tri14 Center Hima R, 1522, weeks gestation , [place] Con[place]ita [place], of 120, Medical Adam [facility] [id number], [place], [facility] 120, [place] [id number] Adam, tel: , [place]. [place] tel:[phone]. [id number] tel:[phone] [facility] Suprvsn of preg w Nov-2 Hima Referring In Womens history of 8-201 Ravinder. 700 Provider: Health DEB, pre-term labor, 7 Medical Ravinder PO Box first [place] Hima R, 1522, trimesterSupervis , [place] 700 [place], ion of other high 120, Medical [place], risk pregnancies, [facility] [id number], first [place], [facility] 120, [place] trimesterEncntr [id number] Adam, tel: screen for , [place]. [place], infections w sexl tel:[phone]. mode of [id number] tel: transmissEncounte [phone] r for screening for oth infec/parastc diseasesEncounter for screening of [id number] weeks gestation of Associates Adam May-3 Hima Referring In Womens Follow-Up, 1-201 Ravinder. 700 Provider: Geno BOYD, Routine 7 [facility] Hima Napier, 1522, Dr [place] Conchita Kwan, 120, Medical Adam IGLESIAS, [place] [id number], [place], [place] 120, [place] [id number] Adam, tel:+2 , [place]. [place], tel:[phone]. [id number] tel:[phone] Jose Medina Mar-3 Hima Referring In Womens 0-201 Ravinder. 700 Provider: Geno BOYD, 7 [facility] Center Hima Napier, 1522, [place], 120, Medical Adam IGLESIAS, [place] [id number], [place], [facility] 120, [place] [id number] Adam, tel:+ , [place]. [place], tel:[phone]. [id number] tel:[phone] Jose Medina Embolism and Mar-0 Hima Referring In Womens thrombosis of 2-201 Ravinder. 700 Provider: Geno BOYD, superfic veins of 7 [facility] right low extrm Center Hima Napier [address] [place], 120, Medical Adam [facility] [id number], [place], [facility] 120, [place] [id number] Adam, tel:+ , [place]. [place], tel:[phone]. [id number] tel:[phone] Jose Medina Oct-2 Hima Referring In Womens 5-201 Ravinder. 700 Provider: Geno BOYD, 6 [facility] Center Hima Napier, [address] [place] Conchita Kwan, 120, Medical Adam IGLESIAS, [place] [id number], [place], [place] 120, [place] [id number] Adam, tel: , [place]. [place], tel: [phone]. [id number] tel:[phone] oJse Medina Placenta Previa Sep-2 Hima Referring In Womens without 7-201 Ravinder. 700 Provider: Geno BOYD, HemorrhageEncount 6 [facility] er for screening Center Hima Napier, 1522, for oth Dr [place] Conchita Kwan, infec/parastc 120, Medical KELSIE, nate [facility] [id number], [place], [facility] 120, [place] [id number] Adam, tel: , [place]. [place], tel:[phone]. [id number] tel:[phone] Associates Adam DysuriaDysuria Sep-2 Flowers Referring In Womens 2-201 Lucinda. Provider: Health DEB, [address] [place] [address] Hima Napier, 1522, [place] [address], [facility], 120, [place] [id number], [place], [facility] 120, [facility], tel:[phone] [place], , [place]. [id number]. tel: tel: [phone] Associates Adam Joselito-2 Hima Referring In Womens 5-201 [place]. 700 Provider: Health DEB, 5 [facility] Hima Napier 1522, , [place] [address] [place], 120, [facility], [facility] [id number], [place], [facility] 120, [place] [id number] Adam, tel: , [place]. [place], tel: [phone]. [id number] tel:[phone] Associates Adam Dec-2 Hima Referring In Womens 3-201 [place]. 700 Provider: Health DEB, 4 [facility] Hima Napier 1522, , [place] [address] [place], 120, [facility], [facility] [id number], [place], [facility] 120, [place] [id number] Adam, tel: , [place]. [place], tel: [phone]. [id number] tel:[phone] Associates Adam Dec-1 Luan In Womens 6-201 Nelia. Health PA, [address] [place] [address] 1522, [place] Dr [place], [facility], 120, [id number], Med[place], KELSIE, tel:[phone] , [place]. tel: [phone] Family History Family Member Diagnosis Age At [...] Date Status Comments Influenza, injectable, completed Source: Other Provider quadrivalent, preservative free, 3 yrs or older Tdap completed Source: New Immunization Record Influenza, injectable, completed Source: New Immunization Record quadrivalent, preservative free, 3 yrs or older Tdap completed Source: New Immunization Record Influenza, injectable, completed Source: Source Unspecified quadrivalent, preservative free, 3 yrs or older Payers Payer name Insurance type Covered constitution party ID Authorization(s) BC Out Of State [id number] [facility] [id number] [facility] [id number] [facility] [id number] Social History Type Description Quantity Date Captured Alcohol Use Details No Caffeine Use Details Unknown Tobacco Use Status Unknown Smoking Status Never smoker Vital Signs Date / Height Weight BMI Pulse Blood Temperature Respiratory Body Head BMI Time: Rate Pressure Rate Surface Circumference percentile Area 216.00 35.9 125/77 -2018 lbs 4 mm[Hg] 10:01 kg/m AM eter (2) Chief Complaint And Reason For Visit Unknown Chief Complaint And Reason For Visit Reason For Referral Reason For Referral Unknown Plan Of Care Date Type Action Status Appointment Gin Rebolledo BOOKED Future Order: Lab Order Pap Smear With HPV Reflex If ASCUS Ordered ([id number]) Future Order: Radiology Order Complete OB Ultrasound > 14 Ordered Weeks ([id number]) Future Order: Lab Order Pap Smear With [...]
--- OUTSIDE RECORDS SUMMARY | 2018-01-11 06:11 | External Medical Summary | Continuity of Care Document ---
:1990 Author Organization [facility] Address [address] [place] [phone] Phone Support Name Relationship Address Phone Padilla Rebolledo spouse [address] [place] [address] Allergies, Adverse Reactions, Alerts Substance Reaction Severity Status No Known Drug Allergies Unknown Active Medications Medication Instructions Dosage Effective Dates Status Comments (start - stop) Keflex 500 mg take 1 capsule by - Active capsule ORAL route every 8 hours for 7 days 27 mg-0.8 take 1 tablet by Not Available - Active mg tablet oral route every day Problems Condition Effective Dates (start - stop) Clinical Status Threatened - Dysuria - Threatened - Threatened Threatened Dysuria Placenta Previa without Hemorrhage Encntr screen for infections w sexl - mode of transmiss Encounter for screening for oth - infec/parastc diseases Routine Care, Multigravida Encounter for screening of - mother 10 weeks gestation of - Active Procedures Procedure Date OB US < 14 WKS, SINGLE FETUS Results Test Name Date and Time Measure Units Reference Range Abnormal Flag Comments Unknown Advance Directives Directive Yes / No Effective Date File Name Unknown Encounters Encounter Practice Location Reason(s) Diagnoses Date Provider Care Team Description For Visit Members Jose Medina Sep-2 Hima In Womens 9-[address], 6 Medical PO Box Center 1522, [place], 120, [place], [place], [id number], [place], [place] [id number] tel:+ , [place]. [id number] tel: [phone] Jose Medina Placenta Previa Sep-2 Hima Referring In Womens without 7-201 [place]. 700 Provider: Silverio Cruzntafia 6 [facility] Box screen for Center Hima R, 1522, infections w sexl , [place] [address] [place], mode of 120, Medical [place], transmissEncounte Adam, [place] [id number], r for screening [place], [facility] 120, [place] for oth [id number] Adam, tel: infec/parastc , [place]. [place], diseasesRoutine tel:[phone]. Care, [id number] tel: MultigravidaEncou [phone] nter for screening of dugkkv31 weeks gestation of Associates Adam Threatened Sep-2 Hima Referring In Womens Ultrasound 2-201 [place]. 700 Provider: Geno BOYD 6 [facility] Box [place] Hima Napier, 1522, , [place] [address] [place], 120, Medical [facility] [id number], [place], [facility] 120, [place] [id number] Adam, tel: , [place]. [place], tel: [phone]. [id number] tel:[phone] Jose Medina Threatened Sep-2 Flowers Referring In Womens abortionThreatene 2-201 [facility]. Provider: steve Cruz [address] [place] [address] Box abortionThreatene [facility] Hima R, 1522, d [place] [address], [facility], surwa 120, [place] [id number], [place] [address], Adam IGLESIAS, tel:[phone] [facility] , [place]. [id number]. tel: tel: [phone] Jose Medina Joselito-2 Hima Referring In Womens 5-201 [place]. 700 Provider: Geno BOYD 5 [facility] Box [place] Hima Napier, 1522, , [place] [address] [place], 120, Medical Adam [facility] [id number], [place], [facility] 120, [place] [id number] Adam, tel: , [place]. [place] tel: [phone]. [id number] tel:[phone] Jose Medina Dec-2 Hima Referring In Womens 3-201 [place]. 700 Provider: Health [place], 4 [facility] Box [place] Hima Napier 1522, , [place] 700 [place], [facility], [facility], [facility] Dr [id number], [place], [place] [address], [id number] [place], tel: , [place]. [place], tel: [phone]. [id number] tel:[phone] Jose Medina Jun- Luan In Womens 6-201 Nelia. Health [place], 4 700 Box [facility] 15[address], Center Dr [place], [facility] [place], 120, [id number], [place], [facility], tel: [phone] , . tel: [phone] Family History Family Member Diagnosis Age At [...] name Insurance type Covered libertarian ID Authorization(s) [facility] [id number] [facility] [id number] Social History Type Description Quantity Date Captured [...]
--- OUTSIDE RECORDS SUMMARY | 2018-01-11 06:11 | External Medical Summary | Continuity of Care Document ---
:1990 Author Organization [facility] Address [address] [place] [phone] Phone Support Name Relationship Address Phone Padilla Rebolledo spouse [address] [facility] [phone] [place] [address] Allergies, Adverse Reactions, Alerts Substance Reaction Severity Status No Known Drug Allergies Unknown Active Medications Medication Instructions Dosage Effective Dates Status Comments (start - stop) Aspirin chew 1 tablet by 81 MG - Active Low-Strength 81 mg oral route every chewable tablet day 27 mg-0.8 take 1 tablet by Not Available - Active mg tablet oral route every day Problems Condition Effective Dates (start - stop) Clinical Status Dysuria - Encounter for suprvsn of normal - , third trimester Encounter for screening of - mother 36 weeks gestation of - 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 Placenta Previa without Hemorrhage Encounter for screening for oth - infec/parastc diseases Dysuria Active Active Procedures Procedure Date Immuniz admnin, 1 vac, sngl/combo 19 Yrs + TDAP VACCINE >7 IM OB Visit No Charge Cult, pathgnc orgnsm, screen Results Test Name Date and Time Measure Units Reference Range Abnormal Flag Comments Panel Description: STREPTOCOCCUS, GROUP B CULTURE STREPTOCOCCUS, GROUP SEE NOTE STREPTOCOCCUS, GROUP B CULTURE B CULTURE 16:23:00 MICRO NUMBER: [id number] TEST STATUS: FINAL SPECIMEN SOURCE: VAGINAL/ANORECTAL SPECIMEN QUALITY: ADEQUATE RESULT: No group B Streptococcus isolatedREPORT COMMENT:FASTING:UNKNOWNTest performed at [facility] [id number] [place] [address]Kfclwtew: VALENTIN ANNA DO,MPH Advance Directives Directive Yes / No Effective Date File Name Unknown Encounters Encounter Practice Location Reason(s) Diagnoses Date Provider Care Team Description For Visit Members Associates [facility] Encounter for Mar-3 Hima Referring In Womens suprvsn of normal 0-201 [place]. 700 Provider: Geno BOYD, , third 7 [facility] trimesterEncounter [place] Hima Napier, 1522, for [place], screening of 120, Medical [place], [id number] weeks Adam [place] [id number], gestation of [place], [facility] 120, [place] [id number] Adam, tel:+ , [place]. [place], tel: [phone]. [id number] tel:[phone] Jose Medina Embolism and Mar-0 Hima Referring In Womens thrombosis of 2-201 [place]. 700 Provider: Geno BOYD, superfic veins of 7 [facility] right low extrm [place] Hima Napier, 1522, [place], 120, Medical [facility] [id number], [place], [facility] 120, [place] [id number] Adam, tel: , [place]. [place], tel: [phone]. [id number] tel:[phone] Jose Medina Aug- Hima Referring In Womens 6-201 [place]. 700 Provider: Geno BOYD, 7 [facility] Hima Napier, 1522, Dr [place] Con[place]ita Kwan, 120, Medical Adam IGLESIAS [place] [id number], [place], [facility] 120, [place] [id number] Adam, tel: , . [place], tel: [phone]. [id number] tel:[phone] Jose Medina Apr-2 Hima Referring In Womens 5-201 [place]. 700 Provider: Geno BOYD, 6 [facility] Hima Napier, 1522, [place], 120, Medical Adam IGLESIAS [place] [id number], [place], [facility] 120, [place] [id number] Adam, tel: , [place]. [place] tel: [phone]. [id number] tel:[phone] Associates Adam Placenta Previa Sep-2 Hima Referring In Womens without 7-201 [place]. 700 Provider: Geno BOYD, [facility] 6 [facility] for screening for Center Hima Napier, 1522, oth infec/parastc , [address], [facility] 120, Medical [facility] [id number], [place], [facility] 120, [place] [id number] Adam, tel: , [place]. [place], tel: [phone]. [id number] tel:[phone] [facility] DysuriaDysuria Sep-2 Flowers Referring In Womens 2-201 [place]. Provider: Geno BOYD, [address] [place] [address] Hima Napier, 1522, [place] [address] [address] Aqu[place], [facility], 120, [place] [id number], [facility] 120, Adam IGLESIAS, tel:[phone] [place] , [place]. [id number]. tel: tel: [phone] Jose Medina Joselito-2 Hima Referring In Womens 5-201 [place]. 700 Provider: Geno BOYD, 5 [facility] Hima Napier, 1522, , [place] [address] [place], 120, Medical Adam [facility] [id number], [place], [facility] 120, [place] [id number] Adam, tel: , . [place] tel: [phone]. [id number] tel:[phone] Jose Medina Dec-2 Hima Referring In Womens 3-201 [place]. 700 Provider: Geno BOYD, 4 [facility] Hima Napier, 1522, , [place] [address] [place], 120, Medical KELSIE, Adam, [place] [id number], [place], [facility] 120, [place] [id number] Adam, tel: , . [place] tel: [phone]. [id number] tel:[phone] Jose Medina Luan In Womens 6-201 [facility], 4 700 PO [facility] 1522, [place] Dr Aqu[place], [facility], 120, [id number], [facility], [phone] 972151 , . tel: [phone] Family History Family Member Diagnosis Age At [...] older Payers Payer name Insurance type Covered democrat ID Authorization(s) [facility] [id number] [facility] [id number] [facility] [id number] [facility] [id number] Social History Type Description Quantity Date Captured Alcohol Use Details No Caffeine Use Details Unknown Tobacco Use Status Unknown Smoking Status Never smoker Vital Signs Date / Height Weight BMI Pulse Blood Temperature Respiratory Body Head BMI Time: Rate Pressure Rate Surface Circumference percentile Area 210.60 35.0 133/ lbs 4 mm[Hg] 4:11 kg/m PM eter (2) Chief Complaint And [...] meat) sexual activity exercise indications for ultrasound new ob handbook [facility] docs influenza vaccine environmental / work hazards travel use of any medications (including supplements, vitamins, herbs, OTC drugs) domestic violence seat belt use childbirth classes / hospital facilities hospital registration genetic testing HIV and other routine tests risk factors [...]
--- OUTSIDE RECORDS SUMMARY | 2018-01-11 06:11 | External Medical Summary | Continuity of Care Document ---
:1990 Author Organization [facility] Address [address] [place], [place] [id number] Phone Support Name Relationship Address Phone Padilla Rebolledo spouse 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 Encounter for suprvsn of normal - , third trimester 32 weeks gestation of - Suprvsn of preg w history of pre-term - labor, second tri Placenta previa specified as w/o - hemor, second trimester 18 weeks gestation of - Suprvsn of preg w history of pre-term - labor, second tri Placenta previa specified as w/o - hemor, second trimester 20 weeks gestation of - Threatened - Threatened Threatened Dysuria Placenta Previa without Hemorrhage Encntr screen for infections w sexl - mode of transmiss Encounter for screening for oth - infec/parastc diseases Routine Care, Multigravida Encounter for screening of - mother 10 weeks gestation of - Placenta previa specified as w/o - hemorrhage, third trimester Encounter for suprvsn of normal - , third trimester 28 weeks gestation of - Encounter for suprvsn of normal - , second trimester 14 weeks gestation of - Encounter for suprvsn of normal - , second trimester 20 weeks gestation of - Encounter for suprvsn of normal - , second trimester 24 weeks gestation of - Active Procedures Procedure Date Ultrasnd preg uterus, flwup/repeat Results Test Name Date and Time Measure Units Reference Range Abnormal Flag Comments Unknown Advance Directives Directive Yes / No Effective Date File Name Unknown Encounters Encounter Practice Location Reason(s) Diagnoses Date Provider Care Team Description For Visit Members [facility] Embolism and Mar-0 Hima Referring In Womens thrombosis of 2-201 Ravinder. 700 Provider: Geno BOYD, superfic veins of [address] [place] [address] [address] right low [place] Hima R, 152, extrmEncounter , [place] 700 [place], for suprvsn of 120, Medical [place], normal , [facility] [id number], third [email or web address] KELSIE [place] 120, [place] weeks gestation [id number] Adam, tel: of , [place]. [place], tel: [phone]. [id number] tel:[phone] [facility] 30 weeks Aug- Hima Referring In Womens gestation of 6-201 [place]. 700 Provider: Geno BOYD, pregnancyEncounte 7 [facility] PO Box r for suprvsn of [facility] Lima R, 1522, normal , , [place] 700 [place], third trimester 120, Medical [facility] [id number], [place], [place] 120, [place] [id number] Adam, tel: , . [place] tel: [phone]. [id number] tel:[phone] [facility] Placenta previa Feb-1 Hima Referring In Womens Ultrasound specified as w/o 6-201 [place]. 700 Provider: Geno BOYD, hemorrhage, third 7 Medical Ravinder PO Box [email or web address] weeks Center Hima R, 1522, gestation of [place], 120, Medical [facility] [id number], [place], [place], [place] [id number] Adam, tel: , [place]. [place], tel: [phone]. [id number] tel:[phone] [facility] Placenta previa Feb-0 Hima Referring In Womens specified as w/o 2-201 [place]. 700 Provider: Geno BOYD, hemorrhage, third 7 Medical Ravinder PO Box trimesterEncounte Center Hima R, 1522, r for suprvsn of [place], normal , 120, Medical [place], third [email or web address] [facility] [id number], weeks gestation [place], [place] 120, [place] of [id number] Adam, tel: , [place]. [place] tel: [phone]. [id number] tel:[phone] Jose Medina Encounter for Chuckie-0 Hima Referring In Womens suprvsn of normal 5-201 Ravinder. 700 Provider: Health DEB, , second 7 Medical Ravinder PO Box [email or web address] weeks Center Hima R, 1522, gestation of [place], 120, Medical [facility] [id number], [place], [place] 120, [place] [id number] Adam, tel: , [place], tel: [phone]. [id number] tel:[phone] Jose Medina Encounter for Dec-0 Hima Referring In Womens suprvsn of normal 8-201 Ravinder. 700 Provider: Health PA, , second 6 Medical Ravinder PO Box [id number] weeks Center Hima R, 1522, gestation of [place], 120, Medical [facility] [id number], [place], [place], [place] [id number] Adam, tel: , [place], tel: [phone]. [id number] tel:[phone] [facility] Suprvsn of preg w Dec-0 Hima Referring In Womens Ultrasound history of 8-201 Rav[place]. 700 Provider: Geno BOYD, pre-term labor, 6 Medical Ravinder PO Box second Center Hima R, 1522, triPlacentdallin North, [place] 700 [place], previa specified 120, Medical KELSIE, as w/o [place], [place] [id number], second [place], [place] 120, [place] [email or web address] weeks [id number] Adam, tel: gestation of , [place]. [place] tel: [phone]. [id number] tel:[phone] Jose Medina Suprvsn of preg w Nov-2 Hima Referring In Womens history of 3-201 [place]. 700 Provider: Geno BOYD, pre-term labor, 6 Medical Ravinder PO Box second Center Hima R, 1522, triPfestus North, [place] Con[place] Kwan, previa specified 120, Medical [place], as w/o [place], [place] [id number], second [place], [place] 120, [place] [email or web address] weeks [id number] Adam, tel: gestation of , [place]. [place] tel: [phone]. [id number] tel:[phone] Jose Medina Encounter for Oct-2 Hima Referring In Womens suprvsn of normal 5-201 Ravinder. 700 Provider: Geno BOYD, , second 6 Medical Ravinder PO Box [id number] weeks Center Hima R, 1522, gestation of Dr [place] Conchita Kwan, 120, Medical [facility] [id number], [place], [place], [place] [id number] Adam, tel: , [place], tel: [phone]. [id number] tel:[phone] Jose Medina Placenta Previa Sep-2 Hima Referring In Womens without 7-201 Ravinder. 700 Provider: Geno BOYD, HemorrhageEncntr 6 Medical Ravinder PO Box screen for Center Hima R, 1522, infections w sexl Dr [place] Conchita Kwan, mode of 120, Medical [place], transmissEncountilan [facility]Three [facility] [id number], r for screening [place], [facility] 120, [place] for oth [id number] Adam, tel: infec/parastc , [place], diseasesRoutine tel:[phone]. Care, [id number] tel: MultigravidaEncou [phone] nter for screening of qrfism26 weeks gestation of Jose Medina Threatened Sep-2 Hima Referring In Womens Ultrasound 2-201 [place]. 700 Provider: Geno BOYD, 6 [facility] Hima [place], 1522, , [place] 700 [place], 120, Medical Adam [facility] [id number], [place], [facility] 120, [place] [id number] Adam, tel: , [place]. [place], tel: [phone]. [id number] tel:[phone] Jose Medina Threatened Sep-2 Flowers Referring In Womens abortionThreatene 2-201 [facility]. Provider: Geno BOYD, d [address] [place] [address] abortionThreatene [facility] Hima R, 1522, d Center [facility] [address], [facility], suria 120, [place] [id number], [place] [address], Adam IGLESIAS, tel: [phone] [place], , [place]. [id number]. tel: tel: [phone] Jose Medina Joselito-2 Hima Referring In Womens 5-201 [place]. 700 Provider: Geno BOYD, 5 [facility] Hima R, 1522, , [place] 700 [place], 120, Medical Adam [facility] [id number], [place], [facility] 120, [place] [id number] Adam, tel: , . [place], tel:[phone]. [id number] tel:[phone] Jose Medina Dec-2 Hima Referring In Womens 3-201 [place]. 700 Provider: Geno BOYD, 4 [facility] Hima [place], 1522, , [place] 700 [place], 120, Medical Adam [facility] [id number], KELSIE, [facility] 120, [place] [id number] [place], tel: , [place]. [place], tel: [phone]. [id number] tel:[phone] Jose Medina Luan In Womens 6-201 [place]. [facility], 4 700 PO [place] [id number], [address] [place], [place], 120, [id number], [place], [facility], tel: [phone] , [place]. tel: [phone] Family History Family Member Diagnosis Age At [...] older Payers Payer name Insurance type Covered green party ID Authorization(s) [facility] [id number] [facility] [id number] [facility] [id number] Social History Type Description Quantity Date Captured [...] Status Appointment Gin Rebolledo BOOKED Future Order: Radiology Order Ultrasound OB Follow-up ([id number]) Ordered Future Order: Lab Order Pap Smear With HPV Reflex If ASCUS Ordered ([id number]) Future Order: Radiology Order Complete OB Ultrasound > 14 Ordered Weeks ([id number]) Future Order: Lab Order Pap Smear With [...]
--- OUTSIDE RECORDS SUMMARY | 2018-01-11 06:12 | External Medical Summary | Continuity of Care Document ---
:1990 Author Organization [facility] Address [address] [place], [place] [phone] Phone Care Team Providers Name Role Phone [...] third trimester 28 weeks gestation of - Suprvsn of preg [...] - Malformations 20 weeks gestation of - Supervision of other high risk - pregnancies, second trimester 24 weeks gestation of - Supervision of other high risk - pregnancies, third trimester 30 weeks gestation of - Placenta Previa without Hemorrhage Encounter for screening for oth - infec/parastc diseases Dysuria Active Active Procedures Procedure Date OB Visit No Charge Automated hemogram (CBC) Glucose test Venpnctr fngr/heel/ear stick routne Results Test Name Date and Time Measure Units Reference Range Abnormal Flag Comments Panel Description: CBC With Differential/Platelet WBC 14:27:00 8.5 x10E3/uL 3.4-10.8 RBC 14:27:00 3.72 x10E6/uL 3.77-5.28 L Hemoglobin 14:27:00 11.5 g/dL 11.1-15.9 Hematocrit 14:27:00 35.8 % 34.0-46.6 MCV 14:27:00 96 fL 79-97 MCH 14:27:00 30.9 pg 26.6-33.0 MCHC 14:27:00 32.1 g/dL 31.5-35.7 RDW 14:27:00 14.2 % 12.3-15.4 Platelets 14:27:00 271 x10E3/uL 150-379 Neutrophils 14:27:00 76 % Not Estab. Lymphs 14:27:00 20 % Not Estab. Monocytes 14:27:00 4 % Not Estab. Eos 14:27:00 0 % Not Estab. Basos 14:27:00 0 % Not Estab. Immature Cells 14:27:00 Neutrophils (Absolute) 14:27:00 6.4 x10E3/uL 1.4-7.0 Lymphs (Absolute) 14:27:00 1.7 x10E3/uL 0.7-3.1 Monocytes(Absolute) 14:27:00 0.4 x10E3/uL 0.1-0.9 Eos (Absolute) 14:27:00 0.0 x10E3/uL 0.0-0.4 Baso (Absolute) 14:27:00 0.0 x10E3/uL 0.0-0.2 Immature Granulocytes 14:27:00 0 % Not Estab. Immature Grans (Abs) 14:27:00 0.0 x10E3/uL 0.0-0.1 NRBC 14:27:00 Hematology Comments: 14:27:00 Panel Description: Glucose [Mass/volume] in Serum or Plasma --1 hour post 50 g glucose PO Gestational Diabetes Screen 14:27:00 104 mg/dL 65-135 Advance Directives Directive Yes / No Effective Date File Name Unknown Encounters Encounter Practice Location Reason(s) Diagnoses Date Provider Care Team Description For Visit Members Jose Medina Supervision of Apr-1 Hima Referring In Womens other high risk 9-201 Rav[place]. 700 Provider: Health PA, pregnancies, 8 Medical Ravinder PO Box third [email or web address] [place] Hima R, 1522, weeks gestation [place] 700 [place], of 120, Medical [place], [facility] [id number], [place], [facility] 120, [id number] Adam, tel: , [place]. KELSIE, [id number] tel: [phone]. [id number] tel:[phone] Jose Medina Supervision of Apr-0 Hima Referring In Womens other high risk 5-201 Rav[place]. 700 Provider: Health PA, pregnancies, 8 Medical Ravinder PO Box third [email or web address] Center Hima R, 1522, weeks gestation [place], of 120, Medical [facility] [id number], [place], [facility] 120, [place] [id number] Adam, tel: , [place]. [place], tel: [phone]. [id number] tel:[phone] Jose Medina Supervision of Mar-0 Hima Referring In Womens other high risk 8-201 Ravinder. 700 Provider: Health PA, pregnancies, 8 Medical Ravinder PO Box second Center Hima R, 1522, [email or web address] weeks [place], gestation of 120, Medical [place], [facility] [id number], [place], [facility] 120, [place] [id number] Adam, tel: , [place]. [place], tel: [phone]. [id number] tel:[phone] Jose Medina Suprvsn of preg w Feb-0 Hima Referring In Womens history of 8-201 Ravinder. 700 Provider: Health DEB, pre-term labor, 8 Medical Ravinder PO Box second tri20 Center Hima R, 1522, weeks gestation [place], of 120, Medical Adam [facility] [id number], [place], [facility] 120, [place] [id number] Adam, tel: , [place]. [place], tel: [phone]. [id number] tel:[phone] Jose Medina Suprvsn of preg w Feb-0 Hima Referring In Womens Ultrasound history of 8-201 Ravinder. 700 Provider: Health DEB, pre-term labor, 8 Medical Ravinder PO Box second Center Hima R, 1522, triSupervision of [place], other high risk 120, Medical [place], pregnancies, [facility] [id number], second [place], [facility] 120, [place] trimesterEncounte [id number] Adam, tel: r For , [place]. [place], Screening For tel: [phone]. [id number] tel:[phone] weeks gestation [phone] of Associates [facility] Suprvsn of preg w Chuckie-2 Hima Referring In Womens history of 3-201 Ravinder. 700 Provider: Health PA, pre-term labor, 8 Medical Ravinder PO Box second tri18 Center Hima R, 1522, weeks gestation [place], of 120, Medical [place], [facility] [id number], [place], [place], [place] [id number] Adam, tel: , [place] tel: [phone]. [id number] tel:[phone] Jose Medina Suprvsn of preg w Dec-2 Hima Referring In Womens history of 6-201 Ravinder. 700 Provider: Health PA, pre-term labor, 7 Medical Ravinder PO Box second tri14 Center Hima R, 1522, weeks gestation [place], of 120, Medical Adam [facility] [id number], [place], [place] 120, [place] [id number] Adam, tel: , [place]. [place] tel: [phone]. [id number] tel:[phone] Jose Median Suprvsn of preg w Nov-2 Hima Referring In Womens history of 8-201 Ravinder. 700 Provider: Health DEB, pre-term labor, 7 Medical Ravinder PO Box first Center Hima R, 1522, trimesterSupervis [place], ion of other high 120, Medical [place], risk pregnancies, [facility] [id number], first [place], [facility] 120, [place] trimesterEncntr [id number] Adam, tel: screen for , [place]. [place] infections w sexl tel: [phone]. mode of [phone] tel: transmissEncounte [phone] r for screening for oth infec/parastc diseasesEncounter for screening of [id number] weeks gestation of Jose Medina November- Hima Referring In Womens Follow-Up, 1-201 Ravinder. 700 Provider: Health DEB, Routine 7 Medical Ravinder PO Box Center Hima R, 1522, [place], 120, Medical Adam [facility] [id number], [place], [place], [place] [id number] Adam, tel: , [place]. [place] tel: [phone]. [phone] tel:[phone] Jose Medina Mar-3 Hima Referring In Womens 0-201 [place]. 700 Provider: Health DEB, 7 [facility] Hima Napier 1522, Dr [place] Con[place]ita Kwan, 120, Medical Adam [facility] [id number], [place], [place] 120, [place] [id number] Adam, tel: , [place]. [place], tel: [phone]. [id number] tel:[phone] Jose Medina Embolism and Mar-0 Hima Referring In Womens thrombosis of 2-201 [place]. 700 Provider: Geno BOYD, superfic veins of 7 [facility] right low extrm Center Hima Napier 1522, , [facility] Conchita Kwan, 120, Medical KELSIE, [facility] [id number], [place], [facility] 120, [place] [id number] Adam, tel: , [place]. [place], tel: [phone]. [id number] tel:[phone] Jose Medina Oct-2 Hima Referring In Womens 5-201 [place]. 700 Provider: Geno BOYD, 6 [facility] Earl Brennan, Dr [facility] Conchita Kwan, 120, Medical Adam [facility] [id number], [place], [place], [place] [id number] Adam, tel: , [place]. [place] tel: [phone]. [id number] tel:[phone] Jose Medina Placenta Previa Sep-2 Hima Referring In Womens without 7-201 [place]. 700 Provider: Health DEB, HemorrhageEncount 6 [facility] er for screening Center Hima Napier 1522, for oth , [place] Conchita Kwan, infec/parastc 120, Medical KELSIE, nate [facility] [id number], [place], [place] 120, [place] [id number] Adam, tel: , [place]. [place], tel: [phone]. [id number] tel:[phone] Jose Medina DysuriaDysuria Sep-2 Flowers Referring In Womens 2-201 [place]. Provider: Health DEB, [address] [place] [address] Hima Napier, 1522, Center [address], [facility], 120, [place] [id number], [place], [place] [address], Adam IGLESIAS, tel: [phone] [place], , . [id number]. tel: tel: [phone] Associates [facility] Joselito-2 Hima Referring In Womens 5-201 [place]. 700 Provider: Health DEB, 5 [facility] Hima R, 1522, , [address], 120, Medical KELSIE, Adam, [place] [id number], [place], [place] [address], [id number] Adam, tel: , . [place], tel: [phone]. [id number] tel:[phone] Associates Adam Dec-2 Hima Referring In Womens 3-201 [place]. 700 Provider: Health DEB, 4 [facility] Hima R, 1522, , [place] [address] [place], 120, Medical Adam IGLESIAS, [place] [id number], [place], [place] [address], [id number] Adam, tel: , . [place], tel: [phone]. [id number] tel:[phone] Associates Adam Dec-1 Luan In Womens 6-201 Nelia. Health DEB, [address] [place] [address] 1522, Gene [address]wan [address], [facility], 120, [id number], Adam, KELSIE, tel: [phone] , [place]. tel: [phone] Family History Family Member Diagnosis Age At [...] name Insurance type Covered libertarian ID Authorization(s) [facility] Out Of State [id number] [facility] [id number] [facility] [id number] [facility] [id number] Social History Type Description Quantity Date Captured Alcohol Use Details No Caffeine Use Details Unknown Tobacco Use Status Unknown Smoking Status Never smoker Vital Signs Date / Height Weight BMI Pulse Blood Temperature Respiratory Body Head BMI Time: Rate Pressure Rate Surface Circumference percentile Area 213.30 35.4 lbs 9 mm[Hg] 1:22 kg/m PM eter (2) Chief Complaint And Reason For Visit Unknown Chief Complaint And Reason For Visit Reason For Referral Reason For Referral Unknown Plan Of Care Date Type Action Status Appointment Gin Rebolledo BOOKED Future Order: Lab Order Pap Smear With HPV Reflex If ASCUS Ordered (WPMPap1) Future Order: Radiology Order Complete OB Ultrasound > 14 Ordered Weeks ([id number]) Future Order: Lab Order Pap Smear With [...]
--- OUTSIDE RECORDS SUMMARY | 2018-01-11 06:12 | External Medical Summary | Continuity of Care Document ---
:1990 Author Organization [facility] Address [address] [place], [place] [phone] Phone Care Team Providers Name Role Phone [...] - Malformations 20 weeks gestation of - Placenta Previa without [...] Visit Members Jose Betancourtn of preg w Aug- Hima Referring In Womens history of 8-201 Ravinder. 700 Provider: Geno BOYD, pre-term labor, 8 Medical Ravinder PO Box second tri20 [place] Hima R, 1522, weeks gestation [place], of 120, Medical [place], [facility] [id number], [place] [address], [place] [id number] Adam, tel: , [place]. [place], tel: [phone]. [id number] tel:[phone] Jose Betancourtn of preg w Aug- Hima Referring In Womens Ultrasound history of 8-201 Ravinder. 700 Provider: Geno BOYD, pre-term labor, 8 Medical Ravinder PO Box second [facility] R, 1522, triSupervision of [place], other high risk [facility], Medical [place], [facility], [facility] [id number], [place] [address], trimesterEncounte [id number] Adam, tel: r For , [place]. [place], Screening For tel: [phone]. [id number] tel: weeks gestation [phone] of Associates Adam Suprvsn of preg w Hima Referring In Womens history of 3-201 Ravinder. 700 Provider: Geno BOYD, pre-term labor, 8 Medical Ravinder PO Box second tri18 [place] Hima R, 1522, weeks gestation [place], of 120, Medical Adam IGLESIAS, [place] [id number], [place], [place] 120, [place] [id number] Adam, tel: , [place], tel: [phone]. [id number] tel:[phone] Jose Medina Suprvsn of preg w Dec-2 Hima Referring In Womens history of 6-201 Ravinder. 700 Provider: Geno BOYD, pre-term labor, 7 Medical [place] PO Box second tri14 Center Hima R, 1522, weeks gestation , [place] Con[place] Kwan, of 120, Medical [facility] [id number], [place], [place] 120, [place] [id number] Adam, tel: , [place]. [place], tel: [phone]. [id number] tel:[phone] Jose Medina Suprvsn of preg w Nov-2 Hima Referring In Womens history of 8-201 Ravinder. 700 Provider: Geno BOYD, pre-term labor, 7 Medical [facility] Box first Center Hima R, 1522, trimesterSupervis , [place] 700 [place], ion of other high 120, Medical KELSIE, risk pregnancies, [facility] [id number], first [place], [facility] 120, [place] trimesterEncntr [id number] Adam, tel: screen for , [place]. [place], infections w sexl tel: [phone]. mode of [id number] tel: transmissEncounte [phone] r for screening for oth infec/parastc diseasesEncounter for screening of weeks gestation of Jose Medina May-3 Hima Referring In Womens Follow-Up, 1-201 Ravinder. 700 Provider: Geno BOYD, Routine 7 Medical [facility] Box Center Hima R, 1522, Dr [place] Con[place]ita Kwan, 120, Medical Adam [facility] [id number], [place], [place] 120, [place] [id number] Adam, tel: , [place], tel: [phone]. [id number] tel:[phone] Jose Medina Mar-3 Hima Referring In Womens 0-201 Ravinder. 700 Provider: Geno BOYD, 7 [facility] Hima Napier, 1522, , [place] [address] [place], 120, Medical Adam [facility] [id number], [place], [facility] 120, [place] [id number] Adam, tel:+ , . [place], tel:[phone]. [id number] tel:[phone] Associates Adam Embolism and Mar-0 Hima Referring In Womens thrombosis of 2-201 Ravinder. 700 Provider: Geno BOYD, superfic veins of 7 [facility] right low extrm [place] Hima Napier, 1522, , [place] [address] [place], 120, Medical [place], [place], [place] [id number], [place], [facility] 120, [place] [id number] Adam, tel:+ , . [place], tel:[phone]. [id number] tel:[phone] Associates Adam Oct-2 Hima Referring In Womens 5-201 Ravinder. 700 Provider: Geno BOYD, 6 [facility] Hima Napier, 1522, , [place] [address] [place], 120, Medical Adam [facility] [id number], [place], [facility] 120, [place] [id number] Adam, tel:+ , . [place], tel:[phone]. [id number] tel:[phone] Associates Adam Placenta Previa Sep-2 Hima Referring In Womens without 7-201 Ravinder. 700 Provider: Gneo BOYD, HemorrhageEncount 6 [facility] er for screening Center Hima Napier, 1522, for oth , [place] [address] [place], infec/parastc 120, Medical [place], nate [facility] [id number], [place], [facility] 120, [place] [id number] Adam, tel:+ , . [place], tel: [phone]. [id number] tel:[phone] Associates Adam DysuriaDysuria Sep-2 Flowers Referring In Womens 2-201 Luc[place]. Provider: Geno BOYD, [address] [place] [address] Hima Napier, 1522, Center [address], [facility], 120, [place] [id number], [place], [facility] 120, [place], [place], tel: [phone] [place], , [place]. [id number]. tel: tel:[phone] Associates Adam Joselito-2 Hima Referring In Womens 5-201 [place]. 700 Provider: Health PA, 5 [facility] Hima Napier 1522, , [place] [address] [place], 120, Medical [facility] [id number], [place], [facility] 120, [place] [id number] Adam, tel: , [place]. [place], tel: [phone]. [id number] tel:[phone] Associates Adam Dec-2 Hima Referring In Womens 3-201 [place]. 700 Provider: Health PA, 4 [facility] Hima Napier 1522, , [facility] 700 [place], 120, Medical Adam [facility] [id number], [place], [facility] 120, [place] [id number] Adam, tel: , [place]. [place], tel: [phone]. [id number] tel:[phone] Associates Adam Dec-1 Luan In Womens 6-201 Nelia. Health PA, [address] [place] [address] 1522, [place] Dr Aquiles, [facility], 120, [id number], [place], KELSIE, tel: [phone] , [place]. tel: [phone] Family History Family Member Diagnosis Age At [...] older Payers Payer name Insurance type Covered republican ID Authorization(s) BCBS Out Of State [id number] BCBS [facility] [id number] BCBS [facility] [id number] BCBS [facility] [id number] Social History Type Description Quantity Date Captured Alcohol Use Details No Caffeine Use Details Unknown Tobacco Use Status Unknown Smoking Status Never smoker Vital Signs Date / Height Weight BMI Pulse Blood Temperature Respiratory Body Head BMI Time: Rate Pressure Rate Surface Circumference percentile Area 208.00 34.6 129/66 2018 lbs 1 mm[Hg] 1:44 kg/m PM eter (2) Chief Complaint And Reason For Visit Unknown Chief Complaint And Reason For Visit Reason For Referral Reason For Referral Unknown Plan Of Care Date Type Action Status Appointment Gin Rebolledo BOOKED Future Order: Lab Order Pap Smear With HPV Reflex If ASCUS Ordered (WPMPap1) Future Order: Radiology Order Complete OB Ultrasound > 14 Ordered Weeks ([id number]) Future Order: Lab Order Pap Smear With [...]
--- OUTSIDE RECORDS SUMMARY | 2018-01-11 06:12 | External Medical Summary | Continuity of Care Document ---
:1992 Author Organization [facility] Address [address] [place], [place] [phone] Phone Care Team Providers Name Role Phone [...] second trimester 24 weeks gestation of - Suprvsn of preg [...] For Visit Members Jose Medina Supervision of Sep- Hima Referring In Womens other high risk 8-201 Ravinder. 700 Provider: Health [place], pregnancies, 8 Medical Ravinder PO Box second [place] Hima R, 1522, [id number] weeks [place], gestation of 120, Medical [place], [facility] [id number], [place], [facility] 120, [place] [id number] Adam, tel: , [place]. [place], tel: [phone]. [id number] tel:[phone] Jose Medina Suprvsn of preg w Feb-0 Ihma Referring In Womens history of 8-201 Ravinder. 700 Provider: Health DEB, pre-term labor, 8 Medical Ravinder PO Box second tri20 [place] Hima Napier, 1522, weeks gestation [place], of 120, Medical [facility] [id number], [place], [facility] 120, [place] [id number] Adam, tel: , [place]. [place], tel: [phone]. [id number] tel:[phone] Jose Medina Suprvsn of preg w Feb-0 Hima Referring In Womens Ultrasound history of 8-201 Ravinder. 700 Provider: Health PA, pre-term labor, 8 Medical Ravinder PO Box second [place] Hima R, 1522, triSupervision of Dr, [place] 700 [place], other high risk 120, Medical [place], pregnancies, Adam, [place] [id number], second [place], [place] 120, [place] trimesterEncounte [id number] Adam, tel: r For , [place]. [place], Screening For tel:[phone]. [id number] tel: weeks gestation [phone] of Associates Adam Suprvsn of preg w Chuckie-2 Hima Referring In Womens history of 3-201 Ravinder. 700 Provider: Health PA, pre-term labor, 8 Medical Ravinder PO Box second tri18 Center Hima R, 1522, weeks gestation [place] 700 [place], of 120, Medical [place], [facility] [id number], [place], [facility] 120, [place] [id number] Adam, tel: , [place]. [place] tel: [phone]. [id number] tel:[phone] Associates Adam Suprvsn of preg w Dec-2 Hima Referring In Womens history of 6-201 Ravinder. 700 Provider: Health PA, pre-term labor, 7 Medical Ravinder PO Box second tri14 Center Hima R, 1522, weeks gestation [place], of 120, Medical [place], [facility] [id number], [place], [facility] 120, [place] [id number] Adam, tel: , [place]. [place] tel: [phone]. [id number] tel:[phone] Associates Adam Suprvsn of preg w Nov-2 Hima Referring In Womens history of 8-201 Ravinder. 700 Provider: Health PA, pre-term labor, 7 Medical Ravinder PO Box first Center Hima R, 1522, trimesterSupervis , [place] 700 [place], ion of other high 120, Medical [place], risk pregnancies, [facility] [id number], first [place], [facility] 120, [place] trimesterEncntr [id number] Adam, tel: screen for , [place]. [place], infections w sexl tel: [phone]. mode of [id number] tel: transmissEncounte [phone] r for screening for oth infec/parastc diseasesEncounter for screening of [id number] weeks gestation of Associates Adam May-3 Hima Referring In Womens Follow-Up, 1-201 [place]. 700 Provider: Geno BOYD, Routine 7 [facility] Box Center Marshall Brennan2, , [place] 700 [place], 120, Medical Adam IGLESIAS, [place] [id number], [place], [place] 120, [place] [id number] Adam, tel:+[phone] , [place]. [place], tel: [phone]. [id number] tel:[phone] Jose Medina Mar-3 Hima Referring In Womens 0-201 [place]. 700 Provider: Geno BOYD, 7 [facility] Box Center Marshall Brennan2, Dr [place] Con[place]ita Kwan, 120, Medical Adam IGLESIAS, [place] [id number], [place], [place] 120, [place] [id number] Adam, tel:+2 , [place]. [place], tel: [phone]. [id number] tel:[phone] Associates Adam Embolism and Mar-0 Hima Referring In Womens thrombosis of 2-201 [place]. 700 Provider: Geno BOYD, superfic veins of 7 [facility] right low extrm Center Marshall Brennan2Dr [place] Conchita Kwan, 120, Medical Adam [facility] [id number], [place], [place] 120, [place] [id number] Adam, tel:+ , [place]. [place], tel: [phone]. [id number] tel:[phone] Jose Medina Oct-2 Hima Referring In Womens 5-201 [place]. 700 Provider: Geno BOYD, 6 [facility] Box Center [address] Brennan Dr [place] Con[place]ita [place], 120, Medical Adam IGLESIAS, [place] [id number], [place], [place] 120, [place] [id number] Adam, tel:+316 , [place]. [place], tel: [phone]. [id number] tel:[phone] Jose Medina Placenta Previa Sep-2 Hima Referring In Womens without 7-201 Ravinder. 700 Provider: Geno BOYD, HemorrhageEncount 6 [facility] Box er for screening Center Hima R, 1522, for oth , [place] [address] [place], infec/parastc 120, [facility] [id number], [place], [facility] 120, [place] [id number] Adam, tel:+ , [place]. [place], tel: [phone]. [id number] tel:[phone] Associates Adam DysuriaDysuria Sep-2 Flowers Referring In Womens 2-201 Lucinda. Provider: Health DEB, [address] [place] [address] Hima Napier, 1522, [place] [address] [address] Aquiles, [facility], 120, [place] [id number], [place] [address], Adam IGLESIAS, tel:[phone] [place], , [place]. [id number]. tel: tel: [phone] Associates Adam Joselito-2 Hima Referring In Womens 5-201 [place]. 700 Provider: Health DEB, 5 [facility] Hima Napier, 1522, , [address], 120, [facility], [facility] [id number], [place], [facility] 120, [place] [id number] Adam, tel: , . [place], tel:[phone]. [id number] tel:[phone] Associates Adam Dec-2 Hima Referring In Womens 3-201 [place]. 700 Provider: Health DEB, 4 [facility] Hima Napier, 1522, , [place] [address] [place], [facility], [facility] Adam [facility] [id number], [place], [facility] 120, [place] [id number] Adam, tel: , [place]. [place], tel: [phone]. [id number] tel:[phone] Associates Adam Dec-1 Luan In Womens 6-201 Nelia. Health DEB, [address] [place] [address] 1522, Center Dr Aqu[place], [facility] [place], 120, [id number], [place], KELSIE, tel:[phone] , [place]. tel: [phone] Family History Family Member Diagnosis Age At [...] name Insurance type Covered libertarian ID Authorization(s) [facility] Out Of State [id number] [facility] [id number] [facility] [id number] [facility] [id number] Social History Type Description Quantity Date Captured Alcohol Use Details No Caffeine Use Details Unknown Tobacco Use Status Unknown Smoking Status Never smoker Vital Signs Date / Height Weight BMI Pulse Blood Temperature Respiratory Body Head BMI Time: Rate Pressure Rate Surface Circumference percentile Area 213.90 35.5 126/ -2018 lbs 9 mm[Hg] 11:21 kg/m AM eter (2) Chief Complaint And Reason For Visit Unknown Chief Complaint And Reason For Visit Reason For Referral Reason For Referral Unknown Plan Of Care Date Type Action Status Appointment Gin Rebolledo BOOKED Future Order: Lab Order Pap Smear With HPV Reflex If ASCUS Ordered (WPMPap1) Future Order: Radiology Order Complete OB Ultrasound > 14 Ordered Weeks ([id number]) Future Order: Lab Order Pap Smear With [...]
--- OUTSIDE RECORDS SUMMARY | 2018-01-11 06:12 | External Medical Summary | Continuity of Care Document ---
:1992 Author Organization [facility] Address [address] [place], [place] [phone] Phone Care Team Providers Name Role Phone [...] Visit Members Jose Betancourtn of preg w Aug-0 Hima Referring In Womens history of 8-201 Ravinder. 700 Provider: Geno BOYD, pre-term labor, 8 Medical Ravinder PO Box second tri20 [place] Hima R, 1522, weeks gestation [place], of 120, Medical [place], [facility] [id number], [place] [address], [id number] Adam, tel: , [place]. [place], tel: [phone]. [id number] tel:[phone] Associates Adam Betancourtn of preg w Aug-0 Hima Referring In Womens Ultrasound history of 8-201 Ravinder. 700 Provider: Geno BOYD, pre-term labor, 8 Medical Rav[place] PO Box second Center Hima R, 1522, triSupervision of [place], other high risk [facility], Medical [place], [facility] [id number], [place] [address], trimesterEncounte [id number] Adam, tel: r For , [place]. [place], Screening For tel: [phone]. [id number] tel: weeks gestation [phone] of Associates Adam Gomezvsn of preg w Jul- Hima Referring In Womens history of 3-201 Ravinder. 700 Provider: Geno BOYD, pre-term labor, 8 Medical Ravinder PO Box second tri18 [place] Hima R, 1522, weeks gestation [place], of 120, Medical Adam IGLESIAS, [place] [id number], [place], [place], [place] [id number] Adam, tel: , . [place], tel: [phone]. [id number] tel:[phone] Jose Medina Suprvsn of preg w Dec-2 Hima Referring In Womens history of 6-201 Ravinder. 700 Provider: Health DEB, pre-term labor, 7 Medical [facility] Box second tri14 Center Hima R, 1522, weeks gestation , [place] Con[place] Kwan, of 120, Medical [facility] [id number], [place], [place] 120, [place] [id number] Adam, tel: , [place]. [place], tel:[phone]. [id number] tel:[phone] Jose Medina Suprvsn of preg w Nov-2 Hima Referring In Womens history of 8-201 Ravinder. 700 Provider: Geno BOYD, pre-term labor, 7 Medical [facility] Box first Center Hima R, 1522, trimesterSupervis , [facility] Conchita Kwan, ion of other high 120, Medical [place], risk pregnancies, [facility] [id number], first [place], [facility] 120, [place] trimesterEncntr [id number] Adam, tel: screen for , [place]. [place], infections w sexl tel: [phone]. mode of [id number] tel: transmissEncounte [phone] r for screening for oth infec/parastc diseasesEncounter for screening of [id number] weeks gestation of Jose Medina May-3 Hima Referring In Womens Follow-Up, 1-201 Ravinder. 700 Provider: Geno BOYD, Routine 7 Medical [facility] Box Center Hima R, 1522, Dr [place] Con[place] Kwan, 120, Medical Adam IGLESIAS, [place] [id number], [place], [place] 120, [place] [id number] Adam, tel: , [place]. [place], tel: [phone]. [id number] tel:[phone] Jose Medina Mar-3 Hima Referring In Womens 0-201 Ravinder. 700 Provider: Geno BOYD, 7 [facility] Hima Napier, 1522, , [place] [address] [place], 120, Medical Adam [facility] [id number], [place], [facility] 120, [place] [id number] Adam, tel:+ , . [place], tel:[phone]. [id number] tel:[phone] Associates Adam Embolism and Mar-0 Hima Referring In Womens thrombosis of 2-201 Ravinder. 700 Provider: Geno BOYD, superfic veins of 7 [facility] right low extrm [place] Hima Napier, 1522, , [place] [address] [place], 120, Medical KELSI[place], Adam, [place] [id number], [place], [facility] 120, [place] [id number] Adam, tel:+ , . [place], tel: [phone]. [id number] tel:[phone] Associates Adam Oct-2 Hima Referring In Womens 5-201 Ravinder. 700 Provider: Geno BOYD, 6 [facility] Hima Napier, 1522, , [place] [address] [place], 120, Medical Adam [facility] [id number], [place], [facility] 120, [place] [id number] Adam, tel:+ , . [place], tel: [phone]. [id number] tel:[phone] Associates Adam Placenta Previa Sep-2 Hima Referring In Womens without 7-201 Ravinder. 700 Provider: Geno BOYD, [facility] 6 [facility] er for screening Center Hima Napier, 1522, for oth , [place] [address] [place], infec/parastc 120, Medical [place], nate MedinaBr[facility] [id number], [place], [facility] 120, [place] [id number] Adam, tel:+ , . [place], tel: [phone]. [id number] tel:[phone] Associates Adam DysuriaDysuria Sep-2 Flowers Referring In Womens 2-201 Lucinda. Provider: Geno BOYD, [address] [place] [address] Hima Napier, 1522, Center [address], [facility], 120, [place] [id number] [facility]St[facility] 120, Adam IGLESIAS, tel: [phone] [place], , [place]. [id number]. tel: tel:[phone] Associates Adam Joselito-2 Hima Referring In Womens 5-201 [place]. 700 Provider: Health PA, 5 [facility] Hima Napier 1522, , [place] [address] [place], 120, Medical KELSIE [facility]Br[facility] [id number], [place], [facility] 120, [place] [id number] Adam, tel: , [place]. [place], tel: [phone]. [id number] tel:[phone] Associates Adam Dec-2 Hima Referring In Womens 3-201 [place]. 700 Provider: Health PA, 4 [facility] Hima Napier 1522, , [facility] 700 [place], 120, Medical Adam [facility]Br[facility] [id number], [place], [facility] 120, [place] [id number] Adam, tel: , [place]. [place], tel: [phone]. [id number] tel:[phone] Associates Adam Dec-1 Luan In Womens 6-201 Nelia. Health PA, [address] [place] [address] 1522, [place] Dr [place], [facility], 120, [id number], [place], KELSIE, tel: [phone] , [place]. tel: [phone] Family History Family Member Diagnosis Age At [...] Insurance type Covered constitution party ID Authorization(s) BCBS Out Of State [id number] BCBS [facility] [id number] [facility] [id number] [facility] [id number] Social History Type Description Quantity Date Captured Alcohol Use Details No Caffeine Use Details Unknown Tobacco Use Status Unknown Smoking Status Never smoker Vital Signs Date / Height Weight BMI Pulse Blood Temperature Respiratory Body Head BMI Time: Rate Pressure Rate Surface Circumference percentile Area 207.40 34.5 121/71 2018 lbs 1 mm[Hg] 2:46 kg/m PM eter (2) Chief Complaint And Reason For Visit Unknown Chief Complaint And Reason For Visit Reason For Referral Reason For Referral Unknown Plan Of Care Date Type Action Status Appointment Gin Rebolledo BOOKED Future Order: Lab Order Pap Smear With HPV Reflex If ASCUS Ordered (WPMPap1) Future Order: Radiology Order Complete OB Ultrasound > 14 Ordered Weeks ([id number]) Future Order: Lab Order Pap Smear With [...]
--- OUTSIDE RECORDS SUMMARY | 2018-01-11 06:12 | External Medical Summary | Continuity of Care Document ---
:1990 Author Organization [email or web address] Address [address] [place], [place] [id number] Phone Care Team Providers Name Role Phone [...] other high risk - pregnancies, third trimester 34 weeks gestation of - Supervision of other high risk - pregnancies, third trimester 30 weeks gestation of - Supervision of other high risk - pregnancies, third trimester 28 weeks gestation of - Placenta Previa without Hemorrhage Encounter for screening for oth - infec/parastc diseases Dysuria Active Active Procedures Procedure Date OB Visit No Charge - RN TRAVEL Results Test Name Date and Time Measure Units Reference Range Abnormal Flag Comments Unknown Advance Directives Directive Yes / No Effective Date File Name Unknown Encounters Encounter Practice Location Reason(s) Diagnoses Date Provider Care Team Description For Visit Members Jose Medina Supervision of Hima Referring In Womens other high risk 5-201 Ravinder. 700 Provider: Health PA, pregnancies, 8 Medical Ravinder [address] third [email or web address] Center Hima R, 1522, weeks gestation , [place] Conchita Kwan, of 120, Medical [facility] [id number], [place], [facility] 120, [id number] Adam, tel: , . KELSIE, [id number] tel: [phone]. [phone] tel:[phone] Jose Medina Suprvsn of preg w Hima Referring In Womens history of 1-201 Ravinder. 700 Provider: Health PA, pre-term labor, 8 Medical Ravinder PO Box third [place] Hima R, 1522, trimesterSupervis , [place] Conchita Kwan, ion of other high 120, Medical [place], risk pregnancies, [place], [place] [id number], third [email or web address] [place], [place] 120, [place] weeks gestation [id number] Adam, tel: of , [place]. [place], tel: [phone]. [id number] tel:[phone] Jose Medina Supervision of Apr-1 Hima Referring In Womens other high risk 9-201 Ravinder. 700 Provider: Health PA, pregnancies, 8 Medical Ravinder PO Box third [email or web address] Center Hima R, 1522, weeks gestation [place], of 120, Medical [place], [facility] [id number], [place], [place] 120, [place] [id number] Adam, tel: , [place]. [place], tel: [phone]. [id number] tel:[phone] Jose Medina Supervision of Apr-0 Hima Referring In Womens other high risk 5-201 Ravinder. 700 Provider: Health PA, pregnancies, 8 Medical Ravinder PO Box third [email or web address] Center Hima R, 1522, weeks gestation [place], of 120, Medical [place], [facility] [id number], [place], [place] 120, [place] [id number] Adam, tel: , [place]. [place], tel: [phone]. [id number] tel:[phone] Jose Medina Supervision of Mar-0 Hima Referring In Womens other high risk 8-201 Ravinder. 700 Provider: Health PA, pregnancies, 8 Medical Ravinder PO Box second Center Hima R, 1522, [email or web address] weeks [place], gestation of 120, Medical [place], [facility] [id number], [place], [place] 120, [place] [id number] Adam, tel: , [place]. [place], tel: [phone]. [id number] tel:[phone] Jose Medina Suprvsn of preg w Feb-0 Hima Referring In Womens history of 8-201 Ravinder. 700 Provider: Health PA, pre-term labor, 8 Medical Ravinder PO Box second tri20 Center Ihma R, 1522, weeks gestation [place], of 120, Medical [facility] [id number], [place], [place] 120, [place] [id number] Adam, tel: , [place]. [place], tel: [phone]. [id number] tel:[phone] Associates [facility] Suprvsn of preg w Feb-0 Hima Referring In Womens Ultrasound history of 8-201 Ravinder. 700 Provider: Health DEB, pre-term labor, 8 Medical Ravinder PO Box second Center Hima R, 1522, triSupervision of [place], other high risk 120, Medical [place], kiran, [facility] [id number], second [place], [place] 120, [place] trimesterEncounte [id number] Adam, tel: r For , [place]. [place], Screening For tel: [phone]. [id number] tel: weeks gestation [phone] of Associates [facility] Suprvsn of preg w Chuckie-2 Hima Referring In Womens history of 3-201 Ravinder. 700 Provider: Health DEB, pre-term labor, 8 Medical Ravinder PO Box second tri18 Center Hima R, 1522, weeks gestation [place], of 120, Medical [facility] [id number], [place], [place] 120, [place] [id number] Adam, tel: , [place]. [place], tel: [phone]. [id number] tel:[phone] Jose Medina Suprvsn of preg w Dec-2 Hima Referring In Womens history of 6-201 Ravinder. 700 Provider: Health DEB, pre-term labor, 7 Medical Ravinder PO Box second tri14 Center Hima R, 1522, weeks gestation [place], of 120, Medical [facility]ELSIE [facility] [id number], [place], [place] 120, [place] [id number] Adam, tel: , [place]. [place], tel: [phone]. [id number] tel:[phone] Jose Medina Suprvsn of preg w Nov-2 Hima Referring In Womens history of 8-201 Ravinder. 700 Provider: Health DEB, pre-term labor, 7 [facility] Hima [place], 1522, trimesterSupervis , [place] Con[place] Kwan, ion of other high 120, Medical [place], risk pregnancies, [facility] [id number], first [place], [facility] 120, [place] trimesterEncntr [id number] Adam, tel:+2 screen for , [place]. [place], infections w sexl tel: [phone]. mode of [id number] tel:+ transmissEncounte [phone] r for screening for oth infec/parastc diseasesEncounter for screening of weeks gestation of Associates Adam November-3 Hima Referring In Womens Follow-Up, 1-201 [place]. 700 Provider: Geno BOYD, Routine 7 [facility] Hima [place]ier, 1522, Dr [place] Kwan, 120, Medical [facility] [id number], [place], [facility] 120, [place] [id number] Adam, tel: , [place]. [place], tel: [phone]. [id number] tel:[phone] Jose Medina Mar-3 Hima Referring In Womens 0-201 [place]. 700 Provider: Geno BOYD, 7 [facility] Hima Napier, 1522, Dr [place] Kwan, 120, Medical [place] [facility] [id number], [place], [facility] 120, [place] [id number] Adam, tel: , [place]. [place], tel: [phone]. [id number] tel:[phone] Jose Medina Embolism and Mar-0 Hima Referring In Womens thrombosis of 2-201 [place]ham. 700 Provider: Geno BOYD, superfic veins of 7 [facility] right low extrm [place] Hima Napier 1522, Dr [place] Kwan, 120, Medical Adam [facility] [id number], [place], [facility] 120, [place] [id number] Adam, tel:2 , [place]. [place], tel: [phone]. [id number] tel:[phone] Jose Medina Oct-2 Hima Referring In Womens 5-201 [place]. 700 Provider: Geno BOYD, 6 [facility] Hima R, 1522, , [place] 700 [place], 120, Medical Adam [facility] [id number], [place], [facility] 120, [place] [id number] Adam, tel:+ , [place]. [place], tel: [phone]. [id number] tel:[phone] Jose Medina Placenta Previa Sep-2 Hima Referring In Womens without 7-201 [place]. 700 Provider: [facility], [facility] 6 [facility] er for screening Center Hima R, 1522, for oth , [place] 700 [place], infec/parastc 120, Medical [place], [facility] [id number], [place], [place] 120, [place] [id number] Adam, tel:+ , [place]. [place], tel: [phone]. [id number] tel:[phone] Jose Medina DysuriaDysuria Sep-2 Flowers Referring In Womens 2-201 Lucinda. Provider: Geno BOYD, [address] [place] [address] Hima R, 1522, Center [address], [facility], 120, [place] [id number], [place], [facility] 120, Adam IGLESIAS, tel:[phone] [place], , [place]. [id number]. tel: tel:[phone] Jose Medina Joselito-2 Hima Referring In Womens 5-201 [place]. 700 Provider: Geno BOYD, 5 [facility] iHma Napier, 1522, , [place] 700 [place], 120, Medical Adam IGLESIAS, [place] [id number], [place], [place], [place] [id number] Adam, tel: , [place]. [place], tel: [phone]. [id number] tel:[phone] Jose Medina Dec-2 Hima Referring In Womens 3-201 [place]. 700 Provider: Geno BOYD, 4 [facility] Hima [place], 1522, , [place]wan, 120, Medical Adam [facility] [id number], [place], [place], [place] [id number] Adam, tel: , [place]. [place], tel: [phone]. [id number] tel:[phone] Jose Medina Luan In Womens 6-201 [facility], [address] [facility] [address], [place] [address] [place], [facility] [place], 120, [id number], [place], [facility], tel: [phone] , [place]. tel: [phone] Family History Family Member Diagnosis Age At [...] Insurance type Covered constitution party ID Authorization(s) [facility] Out Of State [id number] [facility] [id number] [facility] [id number] [facility] [id number] Social History Type Description Quantity Date Captured Alcohol Use Details No Caffeine Use Details Unknown Tobacco Use Status Unknown Smoking Status Never smoker Vital Signs Date / Height Weight BMI Pulse Blood Temperature Respiratory Body Head BMI Time: Rate Pressure Rate Surface Circumference percentile Area 35.9 -2018 4 2:22 kg/m PM eter (2) 218.20 36.3 130/84 -2018 lbs 1 mm[Hg] 2:27 kg/m PM eter (2) Chief Complaint And Reason For Visit Unknown Chief Complaint And Reason For Visit Reason For Referral Reason For Referral Unknown Plan Of Care Date Type Action Status Appointment Gin Rebolledo BOOKED Future Order: Lab Order Pap Smear With HPV Reflex If ASCUS Ordered ([id number]) Future Order: Radiology Order Complete OB Ultrasound > 14 Ordered Weeks ([id number]) Future Order: Lab Order Pap Smear With [...]
--- OUTSIDE RECORDS SUMMARY | 2018-01-11 06:12 | External Medical Summary | Continuity of Care Document ---
:1990 Author Organization [facility] Allergies Active Description Code Type Severity Reaction Onset Reported/ Identified Relationship Clinical to Patient Status Yes No Known 31552 3 N/A N/A Drug 0 Allergies Yes No Known No Aller M N/A 09/13/2016 Drug Known gy Allergies Drug Aller gies Medications Medication Packaging Start Date Stop Date Route Dosage Sig <RXE.5.1> <ORC.7.1 <RXE.1.2>A MG</RXE.5.1& >81</ <ORC.7.2& spirin</RXE.1 gt;<RXE.5.1& ORC.7.1> gt;DAILY< .2><RXE.1. gt;TAB</RXE. <ORC.7.1 /ORC.7.2> 2> 5.1><RXE. >1</O <ORC.7.2& Vits 5.1>MG</R RC.7.1>& gt;DAILY< W-Ca,Fe,FA(& XE.5.1> lt;ORC.7.1& /ORC.7.2> lt;1Mg)</RXE. gt;800</ <ORC.7.2& 1.2><RXE.1 ORC.7.1> gt;Q8H</O .2>Ibuprofen& RC.7.2> lt;/RXE.1.2> Tablet 02/27/2015 04/17/2016 NOR-Q-D take 1 tablet by oral route every day Capsule 04/24/2016 05/19/2016 KEFLEX take 1 capsule by ORAL route every 8 hours for 7 days Tablet 09/11/2016 06/22/2017 ASPIRIN chew 1 tablet by oral route every day 09/13/2016 PO 81 mg Aspir 81 DAILY 11/04/2016 PO 1 each Tablet DAILY MG 11/12/2016 81 Aspirin DAILY TAB 11/12/2016 1 Vits DAILY W-Ca,Fe,FA(<1 Mg) MG 11/12/2016 800 Ibuprofen Q8H Tablet 12/24/2016 06/22/2017 JUNEL FE 24 take 1 Tablet by Oral route every day Tablet 08/17/2017 ASPIRIN chew 1 tablet by oral route every day Problems Date Dx Attending Type Code Diagnosis Diagnosed By Coded 04/17/2016 Ravinder Blanchard O20.0 Threatened 04/21/2016 Lucinda Flowers O20.0 Threatened J 04/21/2016 Lucinda Flowers R30.0 Dysuria J 07/03/2016 Ravinder Blanchard O09.212 Suprvsn of preg w history of pre-term labor, second tri 07/03/2016 Ravinder Blanchard W O44.02 Placenta previa specified as w/o hemor, second trimester 07/03/2016 Ravinder Blanchard Z3A.20 20 weeks gestation of 09/11/2016 Ravinder Blanchard O44.03 Placenta previa specified as w/o hemorrhage, third trimester 09/11/2016 Ravinder Blanchard Z3A.30 30 weeks gestation of 11/12/2016 RAVINDER BLANCHARD MD O09.213 SUPRVSN OF PREG W R HISTORY OF PRE-TERM LABOR, THIRD TRIMESTER 11/12/2016 RAVINDER BLANCHARD MD O26.893 OTH R RELATED CONDITIONS, THIRD TRIMESTER 11/12/2016 RAVINDER BLANCHARD MD O69.81X0 LABOR AND DEL COMP R BY CORD AROUND NECK, W/O COMPRSN, UNSP 11/12/2016 RAVINDER BLANCHARD MD O70.1 SECOND DEGREE R PERINEAL LACERATION DURING DELIVERY 11/12/2016 RAVINDER BLANCHARD MD Z37.0 SINGLE LIVE R 11/12/2016 RAVINDER BLANCHARD MD Z3A.39 39 WEEKS GESTATION R OF 09/03/2017 Ravinder Blanchard O09.212 Suprvsn of preg w history of pre-term labor, second tri 09/03/2017 Ravinder Blanchard O09.892 Supervision of other high risk pregnancies, second trimester 09/03/2017 Ravinder Blanchard Z36.3 Encounter For Screening For Malformations 09/03/2017 Ravinder Blanchard Z3A.20 20 weeks gestation of Procedures Code Description [place] [address] 04/17/2016 Urinalysis,Non-automated , w/o scope 60398 Cult, bactr, 04/17/2016 wilder colonycnt, urine 04571 04/17/2016 Office/outpatient visit,est, low 43814 OB US < 04/17/2016 14 WKS, SINGLE FETUS 45130 Ultrasnd 07/03/2016 exam of preg uterus, compl 84783 Ultrasnd 09/11/2016 preg uterus, flwup/repeat 94249 Ultrasnd 09/03/2017 exam of preg uterus, compl Results Test Result Range L100.0050 - 09/13/16 19:32 WBC - WHITE BLOOD COUNT 7.6 T/MM3 4.5-11.0 RED BLOOD COUNT 3.61 M/MM3 4.00-5.20 HGB - HEMOGLOBIN 11.4 GM/DL 12-16 HCT - HEMATOCRIT 34.7 % 36-46 MEAN CORPUSCULAR VOLUME 96.1 UM3 80-100 MEAN CORPUSCULAR HGB 31.6 UUG 26-34 MEAN CORPUSCULAR HGB CONC(MCHC 32.9 GM/DL 31-37 RDW STANDARD DEVIATION 43.4 FL 36.9-50.2 PLT - PLATELET COUNT 240 T/MM3 130-400 MEAN PLATELET VOLUME 9.7 UM3 9.4-12.4 NEUTROPHILS % (AUTO) 63.4 % 33-66 LYMPHOCYTES % (AUTO) 29.2 % 23-45 MONOCYTES % (AUTO) 6.2 % 0-9.0 EOSINOPHILS % (AUTO) 0.8 % 0-4 BASOPHILS % (AUTO) 0.1 % 0-2 IMMATURE GRANULOCYTE % (AUTO) 0.3 % 0.0-0.5 NEUTROPHILS # (AUTO) 4.8 T/MM3 1.8-7.7 LYMPHOCYTES # (AUTO) 2.2 T/MM3 1-4.8 MONOCYTES # (AUTO) 0.5 T/MM3 0-0.8 EOSINOPHILS # (AUTO) 0.1 T/MM3 0-0.5 BASOPHILS # (AUTO) 0.0 T/MM3 0-0.2 IMMATURE GRANULOCYTE # (AUTO) 0.02 T/MM3 0.00-0.03 L160.0105 - 09/13/16 19:32 INR 0.96 0.76-1.04 L160.0110 - 09/13/16 19:32 PTT 25.4 SEC 24-36 L100.0070 - 11/11/16 06:31 WBC - WHITE BLOOD COUNT 7.0 T/MM3 4.5-11.0 RED BLOOD COUNT 3.76 M/MM3 4.00-5.20 HGB - HEMOGLOBIN 11.6 GM/DL 12-16 HCT - HEMATOCRIT 36.1 % 36-46 MEAN CORPUSCULAR VOLUME 96.0 UM3 80-100 MEAN CORPUSCULAR HGB 30.9 UUG 26-34 MEAN CORPUSCULAR HGB CONC(MCHC 32.1 GM/DL 31-37 RDW STANDARD DEVIATION 45.1 FL 36.9-50.2 PLT - PLATELET COUNT 224 T/MM3 130-400 MEAN PLATELET VOLUME 10.7 UM3 9.4-12.4 L100.0070 - 11/12/16 05:57 WBC - WHITE BLOOD COUNT 8.2 T/MM3 4.5-11.0 RED BLOOD COUNT 3.58 M/MM3 4.00-5.20 HGB - HEMOGLOBIN 11.1 GM/DL 12-16 HCT - HEMATOCRIT 34.3 % 36-46 MEAN CORPUSCULAR VOLUME 95.8 UM3 80-100 MEAN CORPUSCULAR HGB 31.0 UUG 26-34 MEAN CORPUSCULAR HGB CONC(MCHC 32.4 GM/DL 31-37 RDW STANDARD DEVIATION 44.8 FL 36.9-50.2 PLT - PLATELET COUNT 189 T/MM3 130-400 MEAN PLATELET VOLUME 10.3 UM3 9.4-12.4 Encounters ACCT No. Visit Discharge Status Pt. Type Provider Facility Loc./Unit Complaint Date/Time [id number] 06/06/2015 06/06/2015 CLS Outpatient 04 16:43:00 23:59:59 [id number] 11/11/2016 11/12/2016 DIS Inpatient SANTO Medina [id number] 06:01:00 16:36:00 MD [facility] [id number] 09/13/2016 09/13/2016 DIS Emergency ADEN Medina ED [id number] 18:51:00 20:21:00 [facility] [id number] 01/05/2018 Document [id number] 08:51:00 Registration [id number] 12/24/2017 12/24/2017 CLS Outpatient Santo, 16:00:00 23:59:59 Ravinder Napier [id number] 12/08/2017 12/08/2017 CLS Outpatient Santo, 15:00:00 23:59:59 Ravinder Napier [id number] 11/24/2017 11/24/2017 CLS Outpatient Santo, 14:15:00 23:59:59 Ravinder Napier [id number] 11/12/2017 11/12/2017 CLS Outpatient Santo, 09:40:00 23:59:59 Ravinder Napier [id number] 10/29/2017 10/29/2017 CLS Outpatient Santo, 13:15:00 23:59:59 Ravinder Napier [id number] 10/01/2017 10/01/2017 CLS Outpatient Santo, 11:00:00 23:59:59 Ravinder Napier [id number] 09/03/2017 09/03/2017 CLS Outpatient Santo, 14:45:00 23:59:59 Ravinder Napier [id number] 09/03/2017 09/03/2017 CLS Outpatient Santo, 14:15:00 23:59:59 Ravinder Napier [id number] 08/18/2017 08/18/2017 CLS Outpatient Santo, 13:45:00 23:59:59 Ravinder Napier [id number] 07/21/2017 07/21/2017 CLS Outpatient Santo, 13:45:00 23:59:59 Ravinder Napier [id number] 06/23/2017 06/23/2017 CLS Outpatient Santo, 14:30:00 23:59:59 Ravinder Napier [id number] 12/24/2016 12/24/2016 CLS Outpatient Santo, 13:50:00 23:59:59 Ravinder Napier [id number] 11/11/2016 11/11/2016 CLS Outpatient Santo, 19:15:00 23:59:59 Ravinder Napier [id number] 11/06/2016 11/06/2016 CLS Outpatient Santo, 14:15:00 23:59:59 Ravinder Napier [id number] 10/30/2016 10/30/2016 CLS Outpatient Santo, 13:50:00 23:59:59 Ravinder Napier [id number] 10/23/2016 10/23/2016 CLS Outpatient Santo, 16:10:00 23:59:59 Ravinder Napier [id number] 10/09/2016 10/09/2016 CLS Outpatient Santo, 13:30:00 23:59:59 Ravinder Napier [id number] 09/25/2016 09/25/2016 CLS Outpatient Santo, 14:45:00 23:59:59 Ravinder Napier [id number] 09/11/2016 09/11/2016 CLS Outpatient Santo, 14:40:00 23:59:59 Ravinder Napier [id number] 09/11/2016 09/11/2016 CLS Outpatient Santo, 14:15:00 23:59:59 Ravinder Napier [id number] 08/28/2016 08/28/2016 CLS Outpatient Santo, 15:30:00 23:59:59 Ravinder Napier [id number] 08/04/2016 08/04/2016 CLS Outpatient Flowers, 11:39:00 23:59:59 Lucinda Morrison [id number] 07/31/2016 07/31/2016 CLS Outpatient Santo, 16:00:00 23:59:59 Ravinder Napier [id number] 07/03/2016 07/03/2016 CLS Outpatient Santo, 16:10:00 23:59:59 Ravinder Napier [id number] 07/03/2016 07/03/2016 CLS Outpatient Santo, 15:45:00 23:59:59 Ravinder Napier [id number] 06/18/2016 06/18/2016 CLS Outpatient Santo, 13:15:00 23:59:59 Ravinder Napier [id number] 05/20/2016 05/20/2016 CLS Outpatient Santo, 15:00:00 23:59:59 Ravinder Napier [id number] 04/24/2016 04/24/2016 CLS Outpatient Santo, 08:16:00 23:59:59 Ravinder Napier [id number] 04/22/2016 04/22/2016 CLS Outpatient Santo, 14:30:00 23:59:59 Ravinder Napier [id number] 04/17/2016 04/17/2016 CLS Outpatient Santo, 13:45:00 23:59:59 Ravinder Napier [id number] 04/17/2016 04/17/2016 [facility] Valerie Flowers, 13:30:00 23:59:59 Lucinda Morrison [id number] 01/07/2018 Document 10:30:00 Registration [id number] 01/01/2018 Document 14:00:00 Registration [id number] 04/17/2016 Document 13:40:34 Registration
[2018-01-11] MEDS ORDERED: METHYLERGONOVINE 0.2 MG/ML INJECTION IM PRN (06:13)
[2018-01-11] MEDS ORDERED: ACETAMINOPHEN 500 MG TABLET PO PRN ×2 (06:13→11:58)
[2018-01-11] MEDS ORDERED: LIDOCAINE 1% (10mg/ml) 2mL INJ PF SDV ID PRN (06:13)
[2018-01-11] MEDS ORDERED: CALCIUM CARBONATE Chewable 500mg TABLET PO PRN ×2 (06:13→11:58)
[2018-01-11] MEDS ORDERED: MAG-AL + SIM ORAL LIQUID 30ml PO PRN ×2 (06:13→11:58)
[2018-01-11] MEDS ORDERED: CARBOPROST 250 MCG/ML INJECTION IM PRN (06:13)
[2018-01-11] MEDS ORDERED: OXYTOCIN DRIP 30 UNIT/500 ML ML IV PRN (06:13)
[2018-01-11] MEDS ORDERED: D5LR 1,000 ML IV PRN (06:13)
[2018-01-11] MEDS ORDERED: LR 1,000 ML IV PRN (06:13)
--- NOTE | 2018-01-11 08:09 | Anesthesia Preoperative Report ---
Anesthesia Epidural/Spinal Rec - Date and Time Date: 01/11/18 Preoperative Diagnosis: Procedure: Labor Epidural Plan: Epidural - Vital Signs Vital Signs: Temperature 98.9 F 01/11/18 06:41 Pulse Rate 96 01/11/18 06:41 Respiratory Rate 16 01/11/18 06:41 Blood Pressure 132/89 01/11/18 06:41 /Para: P:2 - Medictaions & Allergies Inpatient Medications: Current Medications Acetaminophen (Tylenol) 500 - 1,000 mg PO Q4H PRN PRN Reason: Pain Al Hydroxide/Mg Hydroxide (Maalox Plus) 30 ml PO Q3H PRN PRN Reason: Indigestion Calcium Carbonate (Tums) 500 - 1,000 mg PO Q2H PRN PRN Reason: Indigestion Carboprost Tromethamine (Hemabate) 250 mcg IM O PRN PRN Reason: .Downtime Dextrose/Lactated Ringer's (Dextrose 5%-Lactated Ringers) 1,000 mls @ 125 mls/ hr IV .Q8H PRN PRN Reason: Labor Last Admin: 01/11/18 08:06 Dose: 125 mls/hr Lactated Ringer's (Lactated Ringers) 1,000 mls @ 999 mls/hr IV .Q1H1M PRN Last Admin: 01/11/18 08:06 Dose: 999 mls/hr Oxytocin (Pitocin Drip) 30 unit in 500 mls @ 2 mls/hr IV .Q24H PRN; Protocol PRN Reason: Induction/Augmentation Last Admin: 01/11/18 08:07 Dose: 2 mls/hr Lidocaine HCl (Xylocaine-Mpf 1% Vial) 0.2 mg ID O PRN PRN Reason: IV Start Methylergonovine Maleate (Methergine) 0.2 mg IM O PRN Misoprostol (Cytotec) 800 mcg ID ONCE PRN Allergies/Adverse Reactions: Allergies Allergy/AdvReac Type Severity Reaction Status Date / Time No Known Drug Allergies Allergy Mild Unverified 09/13/16 19:11 - Home Medications Home Medications: Home Medications Medication Instructions Recorded Confirmed Type Aspirin [Aspir 81] 81 mg PO DAILY #0 09/13/16 History Vit No.130/Iron/Folic 1 tab PO DAILY #0 tab 11/04/16 01/11/18 History [ Tablet] Aspirin 1 tab PO DAILY 01/11/18 01/11/18 History - Medical History Other History: Reports: Now - Surgical History Reproductive Surgery/Treatment: DENIES: Section Anesthesia Reactions: None Hx Family Anesthesia Reaction: No History of Motion Sickness: No - Social History Smoking Status: Never smoker Second Hand Exposure: No Substance Use Type: does not use Alcohol Intake Frequency: does not drink Hx Chewing Tobacco Use: No - Pertinent Findings Lab Data: CBC and BMP 01/11/18 06:28 - Physical Exam Respiratory Exam: lungs clear Cardiovascular Exam: regular rate and rhythm, no murmur - Airway Assessment Mallampati Score: II TMD: 3 Fingerbreadths Neck Extension: good Overall Assessment: no airway concerns - ASA ASA Score: 2 - Discussion Discussion: Discussed risks/options/alternatives of anesthesia and questions answered. Patient consents. Nursing pain assessment noted. Anesthesia Discussion: spouse Attestation Statement: Prior to the delivery of any anesthetic medication, I examined the patient, developed the plan, obtained the patient's consent and discussed the risk and benefits of the procedure with the patient/guardian.
[2018-01-11] MEDS ORDERED: NALOXONE 0.4 MG/ML INJECTION IVP PRN (08:10)
[2018-01-11] MEDS ORDERED: ROPIVACAINE 1% 10MG/ML INJ 200 MG, SUFentanil 50 MCG in NS 100 ML EPI PRN (08:10)
[2018-01-11] MEDS ORDERED: ONDANSETRON 4 MG/2 ML INJECTION IVP PRN (08:10)
[2018-01-11] MEDS ORDERED: DiphenhydrAMINE 50 MG/ML INJECTION IVP PRN (08:10)
--- NOTE | 2018-01-11 11:48 | Labor and Delivery Note ---
DATE OF DELIVERY: 01/11/2018 DIAGNOSES 1. 27-year-old white female, G3, P2 at 39.2 weeks gestational age. 2. Pitocin induction of labor for logistics. 3. Epidural anesthesia. 4. Artificial rupture of membranes. 5. Spontaneous vaginal delivery. 6. Nuchal cord x1. 7. Male infant, Apgars, 3678 grams.(Saúl Reiche) 8. First-degree perineal laceration - repaired. This is a patient of mine that was brought in for logistics induction today. She has had a previous delivery. She also has a history of large babies. Cervix was initially 4 cm dilated and she had begun mojgan at 2: 00 a.m. this morning. Pit was run until 4 milliunits a minute and then turned off and blocked and then restarted and made it to a maximum of 6. Then she was complete and ready to push. Spontaneous vaginal delivery occurred with her second contraction. was bulb suctioned after delivery of the head and then again after delivery of the body. There was a nuchal cord x1 that was delivered through. Cord was allowed to drain for a minute and a half and then it was doubly clamped and the infant's father cut the cord. was initially placed on mother's abdomen. The placenta delivered spontaneously and was intact. The perineum had a first-degree laceration externally that was repaired with 3-0 chromic. EBL was 250. Maternal blood type is A+, rubella is immune and GBS is negative. At the time of dictation, mother and are doing well. [facility]
[2018-01-11] MEDS ORDERED: OXYTOCIN DRIP 30 UNIT/500 ML ML IV SCH (11:58)
[2018-01-11] MEDS ORDERED: HYDROCORTISONE 2.5% CREAM 30gm RECTALLY PRN (11:58)
[2018-01-11] MEDS ORDERED: HYDROCODONE/APAP 5mg/325mg TABLET PO PRN (11:58)
[2018-01-11] MEDS ORDERED: DiphenhydrAMINE 25 MG CAPSULE PO PRN (11:58)
[2018-01-11 12:53] VITALS: BMI 36.2
[2018-01-11] MEDS: IBUPROFEN 800 MG TABLET PO PRN (16:54)
--- NOTE | 2018-01-11 20:45 | Anesthesia Postoperative Note ---
- Date and Time Date: 01/11/18 Time: 20:45 - Status Patient Participated in Evaluation: Patient Participated in Person Vital Signs: Temperature 98.4 F 01/11/18 16:55 Pulse Rate 79 01/11/18 16:55 Respiratory Rate 18 01/11/18 16:55 Blood Pressure 125/81 01/11/18 16:55 Pulse Oximetry 98 01/11/18 16:55 Respiratory Function: Airway Patent Cardiovascular Function: Regular Pulse EKG: Sinus Rhythm Mental Status: Alert and Oriented Pain Intensity: 0 Complications During Recover: None Apparent - Follow-Up Instructions Instructions: Per Surgeon
[2018-01-12 01:35] VITALS: RESP 16; O2SAT 97
[2018-01-12] MEDS: IBUPROFEN 800 MG TABLET PO PRN ×2 (04:35→12:38)
--- NOTE | 2018-01-12 08:00 | Progress Note ---
OB PP Progress Note Free Text - Date Date: 01/12/18 - Progress Note Progress Note: vss af no c/o ready for dc dc inst reviewed f/u 5-6 wks q&A
[2018-01-12 08:02] VITALS: BP 113/71; PULSE 60; TEMP 97.9
[2018-01-12] MEDS ORDERED: DOCUSATE CALCIUM 240 MG CAPSULE PO SCH (09:00)
== END 2018-01-12 13:20 | disposition home or self-care (01) | DRG 775 ==
LOC: MC 06:04
PROVIDERS: ADMIT Obstetrics & Gynecology; ATTEND Obstetrics & Gynecology